=== PATIENT | male | born 1935 | race African-American/Black ===

== ENCOUNTER 2018-11-01 14:28 | Inpatient (IN) | payer MEDICARE ==
[~2018-11-01] VITALS: Ht 180.3 cm; Wt 56.6 kg
[2018-11-01 14:30] VITALS: BP 114/57
[2018-11-01] MEDS ORDERED: ACETAMINOPHEN650 M4 ORAL (14:48)
[2018-11-01] MEDS ORDERED: MAG-AL PLUS XS30 M1 PO (14:57)
[2018-11-01] MEDS ORDERED: ALBUTEROL2.5 MG/3 M INH (14:57)
[2018-11-01] MEDS ORDERED: LOVENOX40 MG/0.4 SUBQ (14:57)
[2018-11-01] MEDS ORDERED: ZESTRIL30 MG ORAL (14:57)
[2018-11-01] MEDS ORDERED: PEPCID AC20 M2 PO (14:57)
[2018-11-01] MEDS ORDERED: COLACE100 MG ORAL (14:57)
[2018-11-01] MEDS ORDERED: FERROUS SU300 MG/5 M ORAL (14:57)
[2018-11-01] MEDS ORDERED: ASCORBIC ACID500 MG ORAL (14:57)
[2018-11-01] MEDS ORDERED: CLONIDINE HCL0.1 MG PO (14:57)
[2018-11-01] MEDS ORDERED: ROBITUSSIN LON118 ML PO (14:57)
[2018-11-01] MEDS ORDERED: ZOFRAN4 MG/5 ML ORAL (14:57)
[2018-11-01] MEDS ORDERED: METOPROLOL SUCC25 MG ORAL (14:57)
[2018-11-01] MEDS ORDERED: BENADRYL25 M3 PO (14:57)
[2018-11-01] MEDS ORDERED: ATIVAN0.5 MG ORAL (14:57)
--- NOTE | 2018-11-01 15:02 | Emergency Room Report ---
History of Present Illness General Chief Complaint: Generalized Weakness Source: Patient, Medical Record, EMS Present Illness HPI Patient is an 83-year-old male sent in by nursing facility for increased generalized weakness. Patient reportedly had decreased oral intake. Patient had prior history of COPD. He had been noted to be losing weight. Patient states that he had not been vomiting. He was noted to have continued cough. Allergies: Coded Allergies: No Known Allergies (Unverified , 11/01/18) Patient History Past Medical History: see triage record Reviewed Nursing Documentation: PMH: Agreed; PSxH: Agreed Nursing Documentation-PMH Past Medical History: No History, Except For Hx Cardiac Problems: Yes - HF; anemia Hx Hypertension: Yes Hx COPD: Yes Review of Systems All Other Systems: negative except mentioned in HPI Physical Exam Vital Signs Date Time Temp Pulse Resp B/P (MAP) Pulse Ox O2 Delivery O2 Flow Rate FiO2 11/01/18 14:23 98.1 82 16 116/67 98 Nasal Cannula 3.0 Sp02 EP Interpretation: reviewed, normal General Appearance: normal inspection, no apparent distress, alert, GCS 15, cachetic, Chronically Ill Head: atraumatic ENT: normal ENT inspection Neck: normal inspection, supple, no bony tend, limited range of motion Respiratory: normal inspection, no respiratory distress, no retraction, wheezing Cardiovascular #1: regular rate, rhythm, no edema Gastrointestinal: normal inspection, normal bowel sounds, non tender, soft, no guarding, no hernia Genitourinary: no CVA tenderness Musculoskeletal: normal inspection, back normal, normal range of motion Neurologic: alert, responsive, electro winning operator III-XII nml as tested, speech normal, motor weakness Psychiatric: normal inspection, judgement/insight normal, mood/affect normal Skin: no rash Medical Decision Making Diagnostic Impression: Primary Impression: Failure to thrive Additional Impressions: COPD (chronic obstructive pulmonary disease) Abdominal aortic aneurysm (AAA) without rupture Urinary tract infection ER Course patient presented for generalized weakness. Differential diagnosis included was not limited to anemia, urinary tract infection, electrolyte abnormality, hypothyroidism, myocardial infarction, myasthenia gravis, dehydration, among others. Because of complexity of patient's case laboratory testing and imaging studies were ordered. EKG interpreted by me showed sinus bradycardia with motion artifact without acute ST or T wave changes.Patient was noted to have some accessory muscle use and some wheezing. Patient was noted to have some decreased appetite. Patient noted to be somewhat anemic. Patient started on IV antibiotics for urinary infection.Dr. Aakash Urias was contacted for inpatient management. Labs Test 11/01/18 14:56 11/01/18 15:20 White Blood Count 9.4 K/UL (4.8-10.8) Red Blood Count 3.20 M/UL (4.70-6.10) Hemoglobin 8.9 G/DL (14.2-18.0) Hematocrit 27.8 % (42.0-52.0) Mean Corpuscular Volume 87 FL (80-99) Mean Corpuscular Hemoglobin 27.8 PG (27.0-31.0) Mean Corpuscular Hemoglobin Concent 32.0 G/DL (32.0-36.0) Red Cell Distribution Width 14.6 % (11.6-14.8) Platelet Count 376 K/UL (150-450) Mean Platelet Volume 5.0 FL (6.5-10.1) Neutrophils (%) (Auto) 66.5 % (45.0-75.0) Lymphocytes (%) (Auto) 20.7 % (20.0-45.0) Monocytes (%) (Auto) 10.8 % (1.0-10.0) Eosinophils (%) (Auto) 0.7 % (0.0-3.0) Basophils (%) (Auto) 1.3 % (0.0-2.0) Prothrombin Time 11.3 SEC (9.30-11.50) Prothromb Time International Ratio 1.1 (0.9-1.1) Activated Partial Thromboplast Time 34 SEC (23-33) Sodium Level 130 MMOL/L (136-145) Potassium Level 4.0 MMOL/L (3.5-5.1) Chloride Level 96 MMOL/L (98-107) Carbon Dioxide Level 29 MMOL/L (21-32) Anion Gap 5 mmol/L (5-15) Blood Urea Nitrogen 17 mg/dL (7-18) Creatinine 0.8 MG/DL (0.55-1.30) Estimat Glomerular Filtration Rate mL/min (>60) Glucose Level 129 MG/DL (74-106) Calcium Level 9.4 MG/DL (8.5-10.1) Total Bilirubin 0.3 MG/DL (0.2-1.0) Aspartate Amino Transf (AST/SGOT) 14 U/L (15-37) Alanine Aminotransferase (ALT/SGPT) 10 U/L (12-78) Alkaline Phosphatase 103 U/L (46-116) Troponin I 0.005 ng/mL (0.000-0.056) Total Protein 6.7 G/DL (6.4-8.2) Albumin 2.2 G/DL (3.4-5.0) Globulin 4.5 g/dL Albumin/Globulin Ratio 0.5 (1.0-2.7) Lipase 182 U/L (73-393) Urine Color Yellow Urine Appearance Slightly cloudy Urine pH 5 (4.5-8.0) Urine Specific [place] 1.015 (1.005-1.035) Urine Protein 2+ (NEGATIVE) Urine Glucose (UA) Negative (NEGATIVE) Urine Ketones Negative (NEGATIVE) Urine Blood 2+ (NEGATIVE) Urine Nitrite Negative (NEGATIVE) Urine Bilirubin Negative (NEGATIVE) Urine Urobilinogen 1 MG/DL (0.0-1.0) Urine Leukocyte Esterase 3+ (NEGATIVE) Urine RBC 0-2 /HPF (0 - 0) Urine WBC 20-30 /HPF (0 - 0) Urine Squamous Epithelial Cells None /LPF (NONE/OCC) Urine Bacteria Moderate /HPF (NONE) Last Vital Signs Date Time Temp Pulse Resp B/P (MAP) Pulse Ox O2 Delivery O2 Flow Rate FiO2 11/01/18 14:23 98.1 82 16 116/67 98 Nasal Cannula 3.0 Status: unchanged Disposition: ADMITTED INPATIENT Condition: Stable Bassem Rizvi MD Nov 01, 2018 15:02
[2018-11-01 15:25] LABS: BASOPHILS % (AUTO) 1.3 % (0.0-2.0); EOSINOPHILS % (AUTO) 0.7 % (0.0-3.0); HEMATOCRIT 27.8 % (42.0-52.0); HEMOGLOBIN 8.9 G/DL (14.2-18.0); LYMPHOCYTES % (AUTO) 20.7 % (20.0-45.0); MEAN CORPUSCULAR VOLUME 87 FL (80-99); MONOCYTES % (AUTO) 10.8 % (1.0-10.0); NEUTROPHILS % (AUTO) 66.5 % (45.0-75.0); PLATELET COUNT 376 K/UL (150-450); RED CELL DISTRIBUTION WIDTH 14.6 % (11.6-14.8); WHITE BLOOD COUNT 9.4 K/UL (4.8-10.8)
[2018-11-01 15:33] LABS: INR 1.1 (0.9-1.1)
[2018-11-01 15:36] LABS: ANION GAP 5 mmol/L (5-15); BLOOD UREA NITROGEN 17 mg/dL (7-18); CALCIUM 9.4 MG/DL (8.5-10.1); CARBON DIOXIDE 29 MMOL/L (21-32); CHLORIDE 96 MMOL/L (98-107); CREATININE 0.8 MG/DL (0.55-1.30); SODIUM 130 MMOL/L (136-145)
[2018-11-01 15:39] LABS: APPEARANCE,URINE SLIGHTLY CLOUDY; BILIRUBIN, URINE NEGATIVE (NEGATIVE); GLUCOSE, URINE (UA) NEGATIVE (NEGATIVE); KETONES,URINE NEGATIVE (NEGATIVE); LEUKOCYTE ESTERASE ,URINE 3+ (NEGATIVE); NITRITE,URINE NEGATIVE (NEGATIVE); PH,URINE 5 (4.5-8.0); PROTEIN,URINE 2+ (NEGATIVE); UROBILINOGEN,URINE 1 MG/DL (0.0-1.0)
[2018-11-01 15:40] LABS: ALANINE AMINOTRANSFERASE 10 U/L (12-78); ALBUMIN 2.2 G/DL (3.4-5.0); ALBUMIN/GLOBULIN RATIO 0.5 (1.0-2.7); ALKALINE PHOSPHATASE 103 U/L (46-116); ASPARTATE AMINO TRANSFERASE 14 U/L (15-37); BILIRUBIN,TOTAL 0.3 MG/DL (0.2-1.0)
[2018-11-01 15:40] LABS: COLOR,URINE YELLOW
[2018-11-01] MEDS ORDERED: cefTRIAXone 1 GM in NS 55 ML IVPB ONE (16:00)
[2018-11-01 16:30] VITALS: BP 135/81
[2018-11-01] MEDS ORDERED: ACETAMINOPHEN325 M1 ORAL (17:20)
[2018-11-01] MEDS ORDERED: ACIDOPHILUS PR1 EACH PO (17:22)
[2018-11-01] MEDS ORDERED: CATAPRES0.1 MG ORAL (17:24)
[2018-11-01] MEDS ORDERED: DIPHENHYDRAMINE25 M1 ORAL (17:25)
[2018-11-01] MEDS ORDERED: LOVENOX10 M4 SUBQ (17:27)
[2018-11-01] MEDS ORDERED: FERROUS SULFAT325 MG ORAL (17:29)
[2018-11-01] MEDS ORDERED: ADULT WAL-100 MG/5 M ORAL (17:30)
[2018-11-01] MEDS ORDERED: DUONEB 0.5-3(2.53 ML HHN (17:33)
[2018-11-01] MEDS ORDERED: LISINOPRIL20 MG ORAL (17:40)
[2018-11-01] MEDS ORDERED: MYLANTA II30 ML PO (17:45)
[2018-11-01] MEDS ORDERED: MEGESTROL400 MG/11 PO (17:46)
[2018-11-01] MEDS ORDERED: METOPROLOL TART25 MG ORAL (17:47)
[2018-11-01] MEDS ORDERED: MULTIVITAMINS1 EAC8 ORAL (17:50)
[2018-11-01] MEDS ORDERED: NITROSTAT0.4 M1 SL (17:51)
[2018-11-01] MEDS ORDERED: ZOFRAN4 M3 ORAL (17:53)
[2018-11-01] MEDS ORDERED: SYNTHROID100 MCG ORAL ×2 (17:59→18:00)
[2018-11-01] MEDS ORDERED: SYNTHROID75 MCG ORAL (18:02)
[2018-11-01 18:03] VITALS: BP 112/54
[2018-11-01] MEDS ORDERED: Zolpidem 5mg tab ORAL PRN (19:15)
[2018-11-01] MEDS ORDERED: LORazepam Inj 2mg/ml 1ml IV PRN (19:15)
[2018-11-01] MEDS ORDERED: Miralax 17gm pkt ORAL PRN (19:15)
[2018-11-01] MEDS ORDERED: Morphine Sulfate 4mg/ml Inj (IV/IM USE ONLY) IVP PRN (19:15)
[2018-11-01] MEDS ORDERED: Mylanta II UD 30ml ORAL PRN (19:15)
[2018-11-01 21:10] VITALS: BP 150/82
[2018-11-02] VITALS: BP 105/43
[2018-11-02 04:00] VITALS: BP 111/54
[2018-11-02 07:25] LABS: BASOPHILS % (AUTO) 1.3 % (0.0-2.0); EOSINOPHILS % (AUTO) 1.3 % (0.0-3.0); HEMATOCRIT 25.8 % (42.0-52.0); HEMOGLOBIN 8.4 G/DL (14.2-18.0); LYMPHOCYTES % (AUTO) 23.5 % (20.0-45.0); MEAN CORPUSCULAR VOLUME 85 FL (80-99); MONOCYTES % (AUTO) 10.9 % (1.0-10.0); PLATELET COUNT 339 K/UL (150-450); RED BLOOD COUNT 3.05 M/UL (4.70-6.10); RED CELL DISTRIBUTION WIDTH 14.7 % (11.6-14.8); WHITE BLOOD COUNT 8.3 K/UL (4.8-10.8)
[2018-11-02 07:41] LABS: ALANINE AMINOTRANSFERASE 10 U/L (12-78); ALBUMIN 2.1 G/DL (3.4-5.0); ALBUMIN/GLOBULIN RATIO 0.5 (1.0-2.7); ALKALINE PHOSPHATASE 100 U/L (46-116); ANION GAP 5 mmol/L (5-15); ASPARTATE AMINO TRANSFERASE 13 U/L (15-37); BILIRUBIN,TOTAL 0.3 MG/DL (0.2-1.0); BLOOD UREA NITROGEN 16 mg/dL (7-18); CALCIUM 9.3 MG/DL (8.5-10.1); CARBON DIOXIDE 27 MMOL/L (21-32); CHLORIDE 98 MMOL/L (98-107); CHOLESTEROL 100 MG/DL (< 200); CREATININE 0.7 MG/DL (0.55-1.30); HDL CHOLESTEROL 36 MG/DL (40-60); POTASSIUM 4.3 MMOL/L (3.5-5.1); SODIUM 130 MMOL/L (136-145); TRIGLYCERIDES 51 MG/DL (30-150)
[2018-11-02 08:00] VITALS: BP 116/59
--- NOTE | 2018-11-02 11:30 | Consultation ---
History of Present Illness General Chief Complaint: Generalized Weakness Present Illness HPI 83-year-old male sent in by nursing facility for increased generalized weakness and decreased oral intake. The pt has cognitive impairment. the pt was able to answer questions the pt is withdrawn and low energy Allergies: Coded Allergies: No Known Allergies (Unverified , 11/01/18) Medication History Scheduled Acidophilus/Pectin, [place] (Acidophilus Probiotic Capsule), 1 EACH PO DAILY, ( Reported) Ascorbic Acid* (Ascorbic Acid*), 500 MG ORAL TWICE A DAY, (Reported) Docusate Sodium* (Colace*), 100 MG ORAL TWICE A DAY, (Reported) Famotidine (Pepcid Ac), 20 MG PO EVERY 12 HOURS, (Reported) Ferrous Sulfate* (Ferrous Sulfate*), 325 MG ORAL TWICE A DAY, (Reported) Levothyroxine Sodium* (Synthroid*), 100 MCG ORAL DAILY, (Reported) Levothyroxine Sodium* (Synthroid*), 50 MCG ORAL DAILY, (Reported) Levothyroxine Sodium* (Synthroid*), 75 MCG ORAL DAILY, (Reported) Lisinopril (Lisinopril*), 20 MG ORAL BID, (Reported) Megestrol Acetate (Megestrol Acetate), 400 MG PO DAILY, (Reported) Metoprolol Tartrate* (Metoprolol Tartrate*), 25 MG ORAL EVERY 12 HOURS, ( Reported) Multivitamin With Minerals (Multivitamins With Minerals*), 1 TAB ORAL DAILY, ( Reported) Scheduled PRN Acetaminophen* (Acetaminophen 325MG Tablet*), 650 MG ORAL Q4H PRN for Mild Pain (Pain Scale 1-3), (Reported) Al Hydroxide/mg Hydroxide (Mag-Al Plus Suspension), 30 ML PO for INDIGESTION, ( Reported) Clonidine Hcl* (Catapres*), 0.1 MG ORAL EVERY 6 HOURS PRN for SBP>160 or DBP>90, (Reported) Diphenhydramine Hcl* (Diphenhydramine Hcl*), 25 MG ORAL Q4HR PRN for Itching, ( Reported) Guaifenesin* (Adult Wal-Tussin*), 10 ML ORAL Q4H PRN for For Cough, (Reported) Ipratropium/Albuterol Sulfate (DuoNeb 0.5-3(2.5)mg/3ml), 3 ML HHN Q4HR PRN for Shortness of Breath, (Reported) Nitroglycerin (Nitrostat), 0.4 MG SL Q5M X3 DOSES PRN for CHEST PAIN, (Reported) Ondansetron* (Zofran*), 4 MG ORAL Q4HR PRN for Nausea & Vomiting, (Reported) Patient History History Provided By: Patient, Medical Record, PMD Healthcare decision maker Anastasiya Abreu Resuscitation status Do Not Resuscitate Advanced Directive on File No Past Medical/Surgical History Past Medical/Surgical History: (1) Abdominal aortic aneurysm (AAA) without rupture (2) COPD (chronic obstructive pulmonary disease) (3) Failure to thrive (4) Generalized weakness Review of Systems Psychiatric: Reports: prior hx, depressed feelings, emotional problems Physical Exam General Appearance: no apparent distress, alert, cachetic Neurologic: alert, depressed affect Last 24 Hour Vital Signs Date Time Temp Pulse Resp B/P (MAP) Pulse Ox O2 Delivery O2 Flow Rate FiO2 11/02/18 09:00 Nasal Cannula 2.0 11/02/18 08:00 53 11/02/18 08:00 96.9 58 19 116/59 (78) 100 11/02/18 04:00 48 11/02/18 04:00 97.0 48 20 111/54 (73) 100 11/02/18 00:00 97.0 53 20 105/43 (63) 100 11/02/18 00:00 53 11/01/18 23:31 Nasal Cannula 2.0 11/01/18 22:00 62 11/01/18 21:10 97.0 62 20 150/82 (104) 94 11/01/18 20:00 97.2 69 23 113/46 92 Nasal Cannula 2.0 11/01/18 18:03 97.1 55 14 112/54 92 Room Air 2.0 11/01/18 16:30 97.7 81 20 135/81 95 Nasal Cannula 2.0 11/01/18 14:30 82 16 Nasal Cannula 3.0 11/01/18 14:30 98.1 72 16 114/57 98 Nasal Cannula 3.0 11/01/18 14:23 98.1 82 16 116/67 98 Nasal Cannula 3.0 Intake and Output 11/01/18 11/02/18 19:00 07:00 Intake Total 55 ml 60 ml Output Total 140 ml 400 ml Balance -85 ml -340 ml Intake Oral 0 ml 60 ml IV Total 55 ml Output Urine Total 140 ml 400 ml Laboratory Tests Test 11/01/18 14:56 11/01/18 15:20 11/02/18 05:26 White Blood Count 9.4 K/UL (4.8-10.8) 8.3 K/UL (4.8-10.8) Red Blood Count 3.20 M/UL (4.70-6.10) L 3.05 M/UL (4.70-6.10) L Hemoglobin 8.9 G/DL (14.2-18.0) L 8.4 G/DL (14.2-18.0) L Hematocrit 27.8 % (42.0-52.0) L 25.8 % (42.0-52.0) L Mean Corpuscular Volume 87 FL (80-99) 85 FL (80-99) Mean Corpuscular Hemoglobin 27.8 PG (27.0-31.0) 27.6 PG (27.0-31.0) Mean Corpuscular Hemoglobin Concent 32.0 G/DL (32.0-36.0) 32.6 G/DL (32.0-36.0) Red Cell Distribution Width 14.6 % (11.6-14.8) 14.7 % (11.6-14.8) Platelet Count 376 K/UL (150-450) 339 K/UL (150-450) Mean Platelet Volume 5.0 FL (6.5-10.1) L 5.4 FL (6.5-10.1) L Neutrophils (%) (Auto) 66.5 % (45.0-75.0) 63.0 % (45.0-75.0) Lymphocytes (%) (Auto) 20.7 % (20.0-45.0) 23.5 % (20.0-45.0) Monocytes (%) (Auto) 10.8 % (1.0-10.0) H 10.9 % (1.0-10.0) H Eosinophils (%) (Auto) 0.7 % (0.0-3.0) 1.3 % (0.0-3.0) Basophils (%) (Auto) 1.3 % (0.0-2.0) 1.3 % (0.0-2.0) Prothrombin Time 11.3 SEC (9.30-11.50) Prothromb Time International Ratio 1.1 (0.9-1.1) Activated Partial Thromboplast Time 34 SEC (23-33) H Sodium Level 130 MMOL/L (136-145) L 130 MMOL/L (136-145) L Potassium Level 4.0 MMOL/L (3.5-5.1) 4.3 MMOL/L (3.5-5.1) Chloride Level 96 MMOL/L (98-107) L 98 MMOL/L (98-107) Carbon Dioxide Level 29 MMOL/L (21-32) 27 MMOL/L (21-32) Anion Gap 5 mmol/L (5-15) 5 mmol/L (5-15) Blood Urea Nitrogen 17 mg/dL (7-18) 16 mg/dL (7-18) Creatinine 0.8 MG/DL (0.55-1.30) 0.7 MG/DL (0.55-1.30) Estimat Glomerular Filtration Rate mL/min (>60) mL/min (>60) Glucose Level 129 MG/DL (74-106) H 101 MG/DL (74-106) Calcium Level 9.4 MG/DL (8.5-10.1) 9.3 MG/DL (8.5-10.1) Total Bilirubin 0.3 MG/DL (0.2-1.0) 0.3 MG/DL (0.2-1.0) Aspartate Amino Transf (AST/SGOT) 14 U/L (15-37) L 13 U/L (15-37) L Alanine Aminotransferase (ALT/SGPT) 10 U/L (12-78) L 10 U/L (12-78) L Alkaline Phosphatase 103 U/L (46-116) 100 U/L (46-116) Troponin I 0.005 ng/mL (0.000-0.056) Total Protein 6.7 G/DL (6.4-8.2) 6.2 G/DL (6.4-8.2) L Albumin 2.2 G/DL (3.4-5.0) L 2.1 G/DL (3.4-5.0) L Globulin 4.5 g/dL 4.1 g/dL Albumin/Globulin Ratio 0.5 (1.0-2.7) L 0.5 (1.0-2.7) L Lipase 182 U/L (73-393) Urine Color Yellow Urine Appearance Slightly cloudy Urine pH 5 (4.5-8.0) Urine Specific [place] 1.015 (1.005-1.035) Urine Protein 2+ (NEGATIVE) H Urine Glucose (UA) Negative (NEGATIVE) Urine Ketones Negative (NEGATIVE) Urine Blood 2+ (NEGATIVE) H Urine Nitrite Negative (NEGATIVE) Urine Bilirubin Negative (NEGATIVE) Urine Urobilinogen 1 MG/DL (0.0-1.0) H Urine Leukocyte Esterase 3+ (NEGATIVE) H Urine RBC 0-2 /HPF (0 - 0) H Urine WBC 20-30 /HPF (0 - 0) H Urine Squamous Epithelial Cells None /LPF (NONE/OCC) Urine Bacteria Moderate /HPF (NONE) H Triglycerides Level 51 MG/DL (30-150) Cholesterol Level 100 MG/DL (< 200) LDL Cholesterol 57 mg/dL (<100) HDL Cholesterol 36 MG/DL (40-60) L Cholesterol/HDL Ratio 2.8 (3.3-4.4) L Thyroid Stimulating Hormone (TSH) 1.253 uiU/mL (0.358-3.740) Microbiology Date/Time Source Procedure Growth Status 11/01/18 15:20 Urine,Clean Catch Urine Culture - Preliminary NO GROWTH Resulted Height (Feet): 5 Height (Inches): 11.00 Weight (Pounds): 109 Medications Current Medications Medications (Trade) Dose Ordered Sig/Casimiro Route PRN Reason Start Time Stop Time Status Last Admin Dose Admin Acetaminophen (Tylenol) 650 mg Q4H PRN ORAL fever 11/01/18 19:15 12/01/18 19:14 Al Hydroxide/Mg Hydroxide (Mylanta II) 30 ml Q6H PRN ORAL dyspepsia 11/01/18 19:15 12/01/18 19:14 Dextrose (Dextrose 50%) 25 ml Q30M PRN IV Hypoglycemia 11/01/18 19:15 12/01/18 19:14 Dextrose (Dextrose 50%) 50 ml Q30M PRN IV Hypoglycemia 11/01/18 19:30 12/01/18 19:29 Lorazepam (Ativan 2mg/ml 1ml) 0.5 mg Q4H PRN IV For Anxiety 11/01/18 19:15 11/08/18 19:14 Morphine Sulfate (Morphine Sulfate) 1 mg Q4H PRN IVP For Pain 11/01/18 19:15 11/08/18 19:14 Ondansetron HCl (Zofran) 4 mg Q6H PRN IVP Nausea & Vomiting 11/01/18 19:15 12/01/18 19:14 Polyethylene Glycol (Miralax) 17 gm HSPRN PRN ORAL Constipation 11/01/18 19:15 12/01/18 19:14 Zolpidem Tartrate (Ambien) 5 mg HSPRN PRN ORAL Insomnia 11/01/18 19:15 11/08/18 19:14 Assessment/Plan Assessment/Plan failure to thrive cognitive impairment mdd Remeron 15mg po qhs provided dar/Cali Wilhelm MD Nov 02, 2018 11:30
--- NOTE | 2018-11-02 11:59 | History & Physical ---
History and Physical History & Physicial Dictated for Int Med-Dr Urias no. [id number]. Clemente Miguel MD Nov 02, 2018 11:59
[2018-11-02 12:00] VITALS: BP 106/54
--- NOTE | 2018-11-02 13:20 | Consultation ---
History of Present Illness General Date patient seen: Nov 01, 2018 Chief Complaint: Generalized Weakness Present Illness HPI 83-year-old male with hx of COPD, hypothyroidsm, [facility] resident presented to ER with CC of increased generalized weakness. Patient reportedly had decreased oral intake. He had been noted to be losing weight. He was found to have severe anemia and hyponatremia and admitted to [facility] [place] [facility] for further work up. Allergies: Coded Allergies: No Known Allergies (Unverified , 11/01/18) Medication History Scheduled Acidophilus/Pectin, [place] (Acidophilus Probiotic Capsule), 1 EACH PO DAILY, ( Reported) Ascorbic Acid* (Ascorbic Acid*), 500 MG ORAL TWICE A DAY, (Reported) Docusate Sodium* (Colace*), 100 MG ORAL TWICE A DAY, (Reported) Famotidine (Pepcid Ac), 20 MG PO EVERY 12 HOURS, (Reported) Ferrous Sulfate* (Ferrous Sulfate*), 325 MG ORAL TWICE A DAY, (Reported) Levothyroxine Sodium* (Synthroid*), 100 MCG ORAL DAILY, (Reported) Levothyroxine Sodium* (Synthroid*), 50 MCG ORAL DAILY, (Reported) Levothyroxine Sodium* (Synthroid*), 75 MCG ORAL DAILY, (Reported) Lisinopril (Lisinopril*), 20 MG ORAL BID, (Reported) Megestrol Acetate (Megestrol Acetate), 400 MG PO DAILY, (Reported) Metoprolol Tartrate* (Metoprolol Tartrate*), 25 MG ORAL EVERY 12 HOURS, ( Reported) Multivitamin With Minerals (Multivitamins With Minerals*), 1 TAB ORAL DAILY, ( Reported) Scheduled PRN Acetaminophen* (Acetaminophen 325MG Tablet*), 650 MG ORAL Q4H PRN for Mild Pain (Pain Scale 1-3), (Reported) Al Hydroxide/mg Hydroxide (Mag-Al Plus Suspension), 30 ML PO for INDIGESTION, ( Reported) Clonidine Hcl* (Catapres*), 0.1 MG ORAL EVERY 6 HOURS PRN for SBP>160 or DBP>90, (Reported) Diphenhydramine Hcl* (Diphenhydramine Hcl*), 25 MG ORAL Q4HR PRN for Itching, ( Reported) Guaifenesin* (Adult Wal-Tussin*), 10 ML ORAL Q4H PRN for For Cough, (Reported) Ipratropium/Albuterol Sulfate (DuoNeb 0.5-3(2.5)mg/3ml), 3 ML HHN Q4HR PRN for Shortness of Breath, (Reported) Nitroglycerin (Nitrostat), 0.4 MG SL Q5M X3 DOSES PRN for CHEST PAIN, (Reported) Ondansetron* (Zofran*), 4 MG ORAL Q4HR PRN for Nausea & Vomiting, (Reported) Patient History Healthcare decision maker Anastasiya Abreu Resuscitation status Do Not Resuscitate Advanced Directive on File No Past Medical/Surgical History Past Medical/Surgical History: (1) HTN (hypertension) (2) Hypothyroidism (3) COPD (chronic obstructive pulmonary disease) Review of Systems All Other Systems: negative except mentioned in HPI Physical Exam General Appearance: cachetic Lines, tubes and drains: peripheral HEENT: normocephalic Neck: non-tender, normal alignment Respiratory/Chest: chest wall non-tender, normal breath sounds Breasts: no masses Cardiovascular/Chest: normal peripheral pulses, normal rate Abdomen: normal bowel sounds Genitourinary/Rectal: normal genital exam Extremities: normal range of motion Last 24 Hour Vital Signs Date Time Temp Pulse Resp B/P (MAP) Pulse Ox O2 Delivery O2 Flow Rate FiO2 11/02/18 09:00 Nasal Cannula 2.0 11/02/18 08:00 53 11/02/18 08:00 96.9 58 19 116/59 (78) 100 11/02/18 04:00 48 11/02/18 04:00 97.0 48 20 111/54 (73) 100 11/02/18 00:00 97.0 53 20 105/43 (63) 100 11/02/18 00:00 53 11/01/18 23:31 Nasal Cannula 2.0 11/01/18 22:00 62 11/01/18 21:10 97.0 62 20 150/82 (104) 94 11/01/18 20:00 97.2 69 23 113/46 92 Nasal Cannula 2.0 11/01/18 18:03 97.1 55 14 112/54 92 Room Air 2.0 11/01/18 16:30 97.7 81 20 135/81 95 Nasal Cannula 2.0 11/01/18 14:30 82 16 Nasal Cannula 3.0 11/01/18 14:30 98.1 72 16 114/57 98 Nasal Cannula 3.0 11/01/18 14:23 98.1 82 16 116/67 98 Nasal Cannula 3.0 Intake and Output 11/01/18 11/02/18 19:00 07:00 Intake Total 55 ml 60 ml Output Total 140 ml 400 ml Balance -85 ml -340 ml Intake Oral 0 ml 60 ml IV Total 55 ml Output Urine Total 140 ml 400 ml Laboratory Tests Test 11/01/18 14:56 11/01/18 15:20 11/02/18 05:26 White Blood Count 9.4 K/UL (4.8-10.8) 8.3 K/UL (4.8-10.8) Red Blood Count 3.20 M/UL (4.70-6.10) L 3.05 M/UL (4.70-6.10) L Hemoglobin 8.9 G/DL (14.2-18.0) L 8.4 G/DL (14.2-18.0) L Hematocrit 27.8 % (42.0-52.0) L 25.8 % (42.0-52.0) L Mean Corpuscular Volume 87 FL (80-99) 85 FL (80-99) Mean Corpuscular Hemoglobin 27.8 PG (27.0-31.0) 27.6 PG (27.0-31.0) Mean Corpuscular Hemoglobin Concent 32.0 G/DL (32.0-36.0) 32.6 G/DL (32.0-36.0) Red Cell Distribution Width 14.6 % (11.6-14.8) 14.7 % (11.6-14.8) Platelet Count 376 K/UL (150-450) 339 K/UL (150-450) Mean Platelet Volume 5.0 FL (6.5-10.1) L 5.4 FL (6.5-10.1) L Neutrophils (%) (Auto) 66.5 % (45.0-75.0) 63.0 % (45.0-75.0) Lymphocytes (%) (Auto) 20.7 % (20.0-45.0) 23.5 % (20.0-45.0) Monocytes (%) (Auto) 10.8 % (1.0-10.0) H 10.9 % (1.0-10.0) H Eosinophils (%) (Auto) 0.7 % (0.0-3.0) 1.3 % (0.0-3.0) Basophils (%) (Auto) 1.3 % (0.0-2.0) 1.3 % (0.0-2.0) Prothrombin Time 11.3 SEC (9.30-11.50) Prothromb Time International Ratio 1.1 (0.9-1.1) Activated Partial Thromboplast Time 34 SEC (23-33) H Sodium Level 130 MMOL/L (136-145) L 130 MMOL/L (136-145) L Potassium Level 4.0 MMOL/L (3.5-5.1) 4.3 MMOL/L (3.5-5.1) Chloride Level 96 MMOL/L (98-107) L 98 MMOL/L (98-107) Carbon Dioxide Level 29 MMOL/L (21-32) 27 MMOL/L (21-32) Anion Gap 5 mmol/L (5-15) 5 mmol/L (5-15) Blood Urea Nitrogen 17 mg/dL (7-18) 16 mg/dL (7-18) Creatinine 0.8 MG/DL (0.55-1.30) 0.7 MG/DL (0.55-1.30) Estimat Glomerular Filtration Rate mL/min (>60) mL/min (>60) Glucose Level 129 MG/DL (74-106) H 101 MG/DL (74-106) Calcium Level 9.4 MG/DL (8.5-10.1) 9.3 MG/DL (8.5-10.1) Total Bilirubin 0.3 MG/DL (0.2-1.0) 0.3 MG/DL (0.2-1.0) Aspartate Amino Transf (AST/SGOT) 14 U/L (15-37) L 13 U/L (15-37) L Alanine Aminotransferase (ALT/SGPT) 10 U/L (12-78) L 10 U/L (12-78) L Alkaline Phosphatase 103 U/L (46-116) 100 U/L (46-116) Troponin I 0.005 ng/mL (0.000-0.056) Total Protein 6.7 G/DL (6.4-8.2) 6.2 G/DL (6.4-8.2) L Albumin 2.2 G/DL (3.4-5.0) L 2.1 G/DL (3.4-5.0) L Globulin 4.5 g/dL 4.1 g/dL Albumin/Globulin Ratio 0.5 (1.0-2.7) L 0.5 (1.0-2.7) L Lipase 182 U/L (73-393) Urine Color Yellow Urine Appearance Slightly cloudy Urine pH 5 (4.5-8.0) Urine Specific [place] 1.015 (1.005-1.035) Urine Protein 2+ (NEGATIVE) H Urine Glucose (UA) Negative (NEGATIVE) Urine Ketones Negative (NEGATIVE) Urine Blood 2+ (NEGATIVE) H Urine Nitrite Negative (NEGATIVE) Urine Bilirubin Negative (NEGATIVE) Urine Urobilinogen 1 MG/DL (0.0-1.0) H Urine Leukocyte Esterase 3+ (NEGATIVE) H Urine RBC 0-2 /HPF (0 - 0) H Urine WBC 20-30 /HPF (0 - 0) H Urine Squamous Epithelial Cells None /LPF (NONE/OCC) Urine Bacteria Moderate /HPF (NONE) H Triglycerides Level 51 MG/DL (30-150) Cholesterol Level 100 MG/DL (< 200) LDL Cholesterol 57 mg/dL (<100) HDL Cholesterol 36 MG/DL (40-60) L Cholesterol/HDL Ratio 2.8 (3.3-4.4) L Thyroid Stimulating Hormone (TSH) 1.253 uiU/mL (0.358-3.740) Microbiology Date/Time Source Procedure Growth Status 11/01/18 15:20 Urine,Clean Catch Urine Culture - Preliminary NO GROWTH Resulted Height (Feet): 5 Height (Inches): 11.00 Weight (Pounds): 109 Medications Current Medications Medications (Trade) Dose Ordered Sig/Casimiro Route PRN Reason Start Time Stop Time Status Last Admin Dose Admin Acetaminophen (Tylenol) 650 mg Q4H PRN ORAL fever 11/01/18 19:15 12/01/18 19:14 Al Hydroxide/Mg Hydroxide (Mylanta II) 30 ml Q6H PRN ORAL dyspepsia 11/01/18 19:15 12/01/18 19:14 Ceftriaxone Sodium (Rocephin) 1 gm DAILY IM 11/03/18 09:00 11/10/18 08:59 UNV Dextrose (Dextrose 50%) 25 ml Q30M PRN IV Hypoglycemia 11/01/18 19:15 12/01/18 19:14 Dextrose (Dextrose 50%) 50 ml Q30M PRN IV Hypoglycemia 11/01/18 19:30 12/01/18 19:29 Lorazepam (Ativan 2mg/ml 1ml) 0.5 mg Q4H PRN IV For Anxiety 11/01/18 19:15 11/08/18 19:14 Mirtazapine (Remeron) 15 mg QHS ORAL 11/02/18 21:00 12/02/18 20:59 Morphine Sulfate (Morphine Sulfate) 1 mg Q4H PRN IVP For Pain 11/01/18 19:15 11/08/18 19:14 Ondansetron HCl (Zofran) 4 mg Q6H PRN IVP Nausea & Vomiting 11/01/18 19:15 12/01/18 19:14 Polyethylene Glycol (Miralax) 17 gm HSPRN PRN ORAL Constipation 11/01/18 19:15 12/01/18 19:14 Sodium Chloride 1,000 ml @ 50 mls/hr Q20H IV 11/02/18 12:15 12/02/18 12:14 11/02/18 12:38 Zolpidem Tartrate (Ambien) 5 mg HSPRN PRN ORAL Insomnia 11/01/18 19:15 11/08/18 19:14 Assessment/Plan Problem List: (1) Severe anemia ICD Codes: D64.9 - Anemia, unspecified SNOMED: 466555614 (2) Hyponatremia ICD Codes: E87.1 - Hypo-osmolality and hyponatremia SNOMED: 13562995 (3) Severe protein-calorie malnutrition ICD Codes: E43 - Unspecified severe protein-calorie malnutrition SNOMED: 867887314 (4) COPD (chronic obstructive pulmonary disease) ICD Codes: J44.9 - Chronic obstructive pulmonary disease, unspecified SNOMED: 28603199 (5) Failure to thrive SNOMED: 49029595 (6) Hypothyroidism ICD Codes: E03.9 - Hypothyroidism, unspecified SNOMED: 44598417 (7) HTN (hypertension) ICD Codes: I10 - Essential (primary) hypertension SNOMED: 64444896 Assessment/Plan calorie count anemia w/u hyponatremia w/u symptomatic treatment check Tsh monitor BP, avoid HCTZ dvt prophylaxis. Jose Reese MD Nov 02, 2018 13:20
--- NOTE | 2018-11-02 13:22 | Pulmonology Progress Note ---
Assessment/Plan Problems: (1) Severe anemia (2) Hyponatremia (3) Severe protein-calorie malnutrition (4) COPD (chronic obstructive pulmonary disease) (5) Failure to thrive (6) Hypothyroidism (7) HTN (hypertension) Assessment/Plan w/u in progress stool for OB check Na monitor BP nutrition evaluation Subjective ROS Limited/Unobtainable: No Constitutional: Reports: no symptoms HEENT: Repors: no symptoms Respiratory: Reports: no symptoms Allergies: Coded Allergies: No Known Allergies (Unverified , 11/01/18) Objective Last 24 Hour Vital Signs Date Time Temp Pulse Resp B/P (MAP) Pulse Ox O2 Delivery O2 Flow Rate FiO2 11/02/18 09:00 Nasal Cannula 2.0 11/02/18 08:00 53 11/02/18 08:00 96.9 58 19 116/59 (78) 100 11/02/18 04:00 48 11/02/18 04:00 97.0 48 20 111/54 (73) 100 11/02/18 00:00 97.0 53 20 105/43 (63) 100 11/02/18 00:00 53 11/01/18 23:31 Nasal Cannula 2.0 11/01/18 22:00 62 11/01/18 21:10 97.0 62 20 150/82 (104) 94 11/01/18 20:00 97.2 69 23 113/46 92 Nasal Cannula 2.0 11/01/18 18:03 97.1 55 14 112/54 92 Room Air 2.0 11/01/18 16:30 97.7 81 20 135/81 95 Nasal Cannula 2.0 11/01/18 14:30 82 16 Nasal Cannula 3.0 11/01/18 14:30 98.1 72 16 114/57 98 Nasal Cannula 3.0 11/01/18 14:23 98.1 82 16 116/67 98 Nasal Cannula 3.0 Intake and Output 11/01/18 11/02/18 19:00 07:00 Intake Total 55 ml 60 ml Output Total 140 ml 400 ml Balance -85 ml -340 ml Intake Oral 0 ml 60 ml IV Total 55 ml Output Urine Total 140 ml 400 ml General Appearance: cachetic HEENT: normocephalic, atraumatic Respiratory/Chest: chest wall non-tender, lungs clear Cardiovascular: normal peripheral pulses, normal rate Abdomen: normal bowel sounds, soft, non tender Genitourinary: normal external genitalia Extremities: no cyanosis 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 Microbiology Date/Time Source Procedure Growth Status 11/01/18 15:20 Urine,Clean Catch Urine Culture - Preliminary NO GROWTH Resulted Laboratory Tests 11/01/18 14:56: White Blood Count 9.4, Red Blood Count 3.20L, Hemoglobin 8.9L, Hematocrit 27.8L , Mean Corpuscular Volume 87, Mean Corpuscular Hemoglobin 27.8, Mean Corpuscular Hemoglobin Concent 32.0, Red Cell Distribution Width 14.6, Platelet Count 376, Mean Platelet Volume 5.0L, Neutrophils (%) (Auto) 66.5, Lymphocytes ( %) (Auto) 20.7, Monocytes (%) (Auto) 10.8H, Eosinophils (%) (Auto) 0.7, Basophils (%) (Auto) 1.3, Prothrombin Time 11.3, Prothromb Time International Ratio 1.1, Activated Partial Thromboplast Time 34H, Sodium Level 130L, Potassium Level 4.0, Chloride Level 96L, Carbon Dioxide Level 29, Anion Gap 5, Blood Urea Nitrogen 17, Creatinine 0.8, Estimat Glomerular Filtration Rate , Glucose Level 129H, Calcium Level 9.4, Total Bilirubin 0.3, Aspartate Amino Transf (AST/SGOT) 14L, Alanine Aminotransferase (ALT/SGPT) 10L, Alkaline Phosphatase 103, Troponin I 0.005, Total Protein 6.7, Albumin 2.2L, Globulin 4.5 , Albumin/Globulin Ratio 0.5L, Lipase 182 11/01/18 15:20: Urine Color Yellow, Urine Appearance Slightly cloudy, Urine pH 5, Urine Specific [place] 1.015, Urine Protein 2+H, Urine Glucose (UA) Negative, Urine Ketones Negative, Urine Blood 2+H, Urine Nitrite Negative, Urine Bilirubin Negative, Urine Urobilinogen 1H, Urine Leukocyte Esterase 3+H, Urine RBC 0-2H, Urine WBC 20-30H, Urine Squamous Epithelial Cells None, Urine Bacteria ModerateH 11/02/18 05:26: White Blood Count 8.3, Red Blood Count 3.05L, Hemoglobin 8.4L, Hematocrit 25.8L , Mean Corpuscular Volume 85, Mean Corpuscular Hemoglobin 27.6, Mean Corpuscular Hemoglobin Concent 32.6, Red Cell Distribution Width 14.7, Platelet Count 339, Mean Platelet Volume 5.4L, Neutrophils (%) (Auto) 63.0, Lymphocytes ( %) (Auto) 23.5, Monocytes (%) (Auto) 10.9H, Eosinophils (%) (Auto) 1.3, Basophils (%) (Auto) 1.3, Sodium Level 130L, Potassium Level 4.3, Chloride Level 98, Carbon Dioxide Level 27, Anion Gap 5, Blood Urea Nitrogen 16, Creatinine 0.7, Estimat Glomerular Filtration Rate , Glucose Level 101, Calcium Level 9.3, Total Bilirubin 0.3, Aspartate Amino Transf (AST/SGOT) 13L, Alanine Aminotransferase (ALT/SGPT) 10L, Alkaline Phosphatase 100, Total Protein 6.2L, Albumin 2.1L, Globulin 4.1, Albumin/Globulin Ratio 0.5L, Osmolality [Pending], Uric Acid [Pending], Triglycerides Level 51, Cholesterol Level 100, LDL Cholesterol 57, HDL Cholesterol 36L, Cholesterol/HDL Ratio 2.8L, Thyroid Stimulating Hormone (TSH) [Pending], Free Thyroxine [Pending], Free Triiodothyronine [Pending], Cortisol [Pending] Current Medications Medications (Trade) Dose Ordered Sig/Casimiro Route PRN Reason Start Time Stop Time Status Last Admin Dose Admin Acetaminophen (Tylenol) 650 mg Q4H PRN ORAL fever 11/01/18 19:15 12/01/18 19:14 Al Hydroxide/Mg Hydroxide (Mylanta II) 30 ml Q6H PRN ORAL dyspepsia 11/01/18 19:15 12/01/18 19:14 Ceftriaxone Sodium (Rocephin) 1 gm DAILY IM 11/03/18 09:00 11/10/18 08:59 UNV Dextrose (Dextrose 50%) 25 ml Q30M PRN IV Hypoglycemia 11/01/18 19:15 12/01/18 19:14 Dextrose (Dextrose 50%) 50 ml Q30M PRN IV Hypoglycemia 11/01/18 19:30 12/01/18 19:29 Lorazepam (Ativan 2mg/ml 1ml) 0.5 mg Q4H PRN IV For Anxiety 11/01/18 19:15 11/08/18 19:14 Mirtazapine (Remeron) 15 mg QHS ORAL 11/02/18 21:00 12/02/18 20:59 Morphine Sulfate (Morphine Sulfate) 1 mg Q4H PRN IVP For Pain 11/01/18 19:15 11/08/18 19:14 Ondansetron HCl (Zofran) 4 mg Q6H PRN IVP Nausea & Vomiting 11/01/18 19:15 12/01/18 19:14 Polyethylene Glycol (Miralax) 17 gm HSPRN PRN ORAL Constipation 11/01/18 19:15 12/01/18 19:14 Sodium Chloride 1,000 ml @ 50 mls/hr Q20H IV 11/02/18 12:15 12/02/18 12:14 11/02/18 12:38 Zolpidem Tartrate (Ambien) 5 mg HSPRN PRN ORAL Insomnia 11/01/18 19:15 11/08/18 19:14 Jose Reese MD Nov 02, 2018 13:22
--- NOTE | 2018-11-02 13:42 | Diagnostic Imaging Report ---
Indication: Dyspnea Comparison: None A single view chest radiograph was obtained. Findings: There is suggestion of cavitation in an area of scarring involving the right lung apex. The scarring is characterized by linear opacities with adjacent pleural thickening. There is also questionable infiltrate in the right infrahilar region of the lung. The lungs are hyperexpanded. Heart is normal in size. The aorta is calcified and slightly ectatic. The bones are osteopenic. IMPRESSION: Pleural parenchymal scarring in the right lung apex. Underlying cavitation not excluded. Questionable infiltrate in the right lung base. COPD
--- NOTE | 2018-11-02 15:56 | GI Initial Consult Note ---
History of Present Illness General Date patient seen: Nov 02, 2018 Time patient seen: 15:49 Reason for Hospitalization: Generalized Weakness Referring physician: CHRISTOPHE ESCOTO Reason for Consultation: FTT Present Illness HPI Patient is an 83-year-old male sent in by nursing facility for increased generalized weakness. Patient reportedly had decreased oral intake. Patient had prior history of COPD. He had been noted to be losing weight. Patient states that he had not been vomiting. He was noted to have continued cough. GI consulted for FTT. ROS limited, patient seen NAD with no active s/sx of N/V/ D. Patient currently on regular diet, calorie count in progress. Initial reports of FTT per facility. Labs reviewed noted with anemia and electrolyte imbalance. Unknown history of endoscopy / colonoscopy. Home Meds Reported Medications Levothyroxine Sodium* (SYNTHROID*) 75 Mcg Tablet, 75 MCG ORAL DAILY for until 12/20 Take in the morning on an empty stomach, at least 30 minutes before food. 11/01/18 Levothyroxine Sodium* (SYNTHROID*) 100 Mcg Tablet, 50 MCG ORAL DAILY for until Take in the morning on an empty stomach, at least 30 minutes before food. 11/01/18 Levothyroxine Sodium* (SYNTHROID*) 100 Mcg Tablet, 100 MCG ORAL DAILY Take in the morning on an empty stomach, at least 30 minutes before food. 11/01/18 Ondansetron* (ZOFRAN*) 4 Mg Tablet, 4 MG ORAL Q4HR PRN for Nausea & Vomiting 11/01/18 Nitroglycerin (NITROSTAT) 0.4 Mg Tab.subl, 0.4 MG SL Q5M X3 DOSES PRN for CHEST PAIN 11/01/18 Multivitamin With Minerals (MULTIVITAMINS WITH MINERALS*) 1 Each Tablet, 1 TAB ORAL DAILY 11/01/18 Metoprolol Tartrate* (METOPROLOL TARTRATE*) 25 Mg Tablet, 25 MG ORAL EVERY 12 HOURS for HOLD SBP<110 or HR<60 11/01/18 Megestrol Acetate (MEGESTROL ACETATE) 400 Mg/10 Ml Oral.susp, 400 MG PO DAILY for POOR ORAL INTAKE 11/01/18 Al Hydroxide/mg Hydroxide (Mag-Al Plus Suspension) 30 Ml Oral.susp, 30 ML PO PRN for INDIGESTION 11/01/18 Lisinopril (LISINOPRIL*) 20 Mg Tablet, 20 MG ORAL BID for SBP<110 or HR<60 11/01/18 Ipratropium/Albuterol Sulfate (DuoNeb 0.5-3(2.5)mg/3ml) 3 Ml Ampul.neb, 3 ML HHN Q4HR PRN for Shortness of Breath 11/01/18 Guaifenesin* (ADULT WAL-TUSSIN*) 100 Mg/5 Ml Liquid, 10 ML ORAL Q4H PRN for For Cough 11/01/18 Ferrous Sulfate* (FERROUS SULFATE*) 325 Mg Tablet, 325 MG ORAL TWICE A DAY 11/01/18 Diphenhydramine Hcl* (DIPHENHYDRAMINE HCL*) 25 Mg Capsule, 25 MG ORAL Q4HR PRN for Itching 11/01/18 Clonidine Hcl* (CATAPRES*) 0.1 Mg Tablet, 0.1 MG ORAL EVERY 6 HOURS PRN for SBP> 160 or DBP>90 11/01/18 Acidophilus/Pectin, [place] (ACIDOPHILUS PROBIOTIC CAPSULE) 1 Each Capsule, 1 EACH PO DAILY 11/01/18 Acetaminophen* (ACETAMINOPHEN 325MG TABLET*) 325 Mg Tablet, 650 MG ORAL Q4H PRN for Mild Pain (Pain Scale 1-3) 11/01/18 Famotidine (PEPCID AC) 20 Mg Tablet, 20 MG PO EVERY 12 HOURS, TAB 11/01/18 Docusate Sodium* (COLACE*) 100 Mg Capsule, 100 MG ORAL TWICE A DAY, CAP 11/01/18 Ascorbic Acid* (ASCORBIC ACID*) 500 Mg Tablet, 500 MG ORAL TWICE A DAY, TAB 11/01/18 Med list reviewed/reconciled: Yes Allergies: Coded Allergies: No Known Allergies (Unverified , 11/01/18) Patient History Limited by: medical condition History Provided By: Medical Record PMH Narrative Past Medical History: see triage record Reviewed Nursing Documentation: PMH: Agreed; PSxH: Agreed Nursing Documentation-PMH Past Medical History: No History, Except For Hx Cardiac Problems: Yes - HF; anemia Hx Hypertension: Yes Hx COPD: Yes Review of Systems All Other Systems: negative except mentioned in HPI Physical Exam Vital Signs Date Time Temp Pulse Resp B/P (MAP) Pulse Ox O2 Delivery O2 Flow Rate FiO2 11/01/18 14:23 98.1 82 16 116/67 98 Nasal Cannula 3.0 Sp02 EP Interpretation: reviewed, normal Labs Laboratory Tests Test 11/02/18 05:26 White Blood Count 8.3 K/UL (4.8-10.8) Red Blood Count 3.05 M/UL (4.70-6.10) L Hemoglobin 8.4 G/DL (14.2-18.0) L Hematocrit 25.8 % (42.0-52.0) L Mean Corpuscular Volume 85 FL (80-99) Mean Corpuscular Hemoglobin 27.6 PG (27.0-31.0) Mean Corpuscular Hemoglobin Concent 32.6 G/DL (32.0-36.0) Red Cell Distribution Width 14.7 % (11.6-14.8) Platelet Count 339 K/UL (150-450) Mean Platelet Volume 5.4 FL (6.5-10.1) L Neutrophils (%) (Auto) 63.0 % (45.0-75.0) Lymphocytes (%) (Auto) 23.5 % (20.0-45.0) Monocytes (%) (Auto) 10.9 % (1.0-10.0) H Eosinophils (%) (Auto) 1.3 % (0.0-3.0) Basophils (%) (Auto) 1.3 % (0.0-2.0) Sodium Level 130 MMOL/L (136-145) L Potassium Level 4.3 MMOL/L (3.5-5.1) Chloride Level 98 MMOL/L (98-107) Carbon Dioxide Level 27 MMOL/L (21-32) Anion Gap 5 mmol/L (5-15) Blood Urea Nitrogen 16 mg/dL (7-18) Creatinine 0.7 MG/DL (0.55-1.30) Estimat Glomerular Filtration Rate mL/min (>60) Glucose Level 101 MG/DL (74-106) Osmolality 272 mOsm/kg (297-317) L Uric Acid 4.1 MG/DL (2.6-7.2) Calcium Level 9.3 MG/DL (8.5-10.1) Total Bilirubin 0.3 MG/DL (0.2-1.0) Aspartate Amino Transf (AST/SGOT) 13 U/L (15-37) L Alanine Aminotransferase (ALT/SGPT) 10 U/L (12-78) L Alkaline Phosphatase 100 U/L (46-116) Total Protein 6.2 G/DL (6.4-8.2) L Albumin 2.1 G/DL (3.4-5.0) L Globulin 4.1 g/dL Albumin/Globulin Ratio 0.5 (1.0-2.7) L Triglycerides Level 51 MG/DL (30-150) Cholesterol Level 100 MG/DL (< 200) LDL Cholesterol 57 mg/dL (<100) HDL Cholesterol 36 MG/DL (40-60) L Cholesterol/HDL Ratio 2.8 (3.3-4.4) L Thyroid Stimulating Hormone (TSH) 1.587 uiU/mL (0.358-3.740) Free Thyroxine 1.24 NG/DL (0.76-1.46) Free Triiodothyronine 1.4 pg/mL (2.3-4.2) L Cortisol Pending General Appearance: well appearing, no apparent distress, alert Head: normocephalic EENT: PERRL/EOMI, normal ENT inspection Neck: supple Respiratory: normal breath sounds, no respiratory distress Cardiovascular: normal rate Gastrointestinal: normal inspection, non tender, soft, normal bowel sounds, non -distended Rectal: deferred Genitourinary: deferred Musculoskeletal: normal inspection, back normal Neurologic: normal inspection, alert, oriented x3, responsive Psychiatric: normal inspection, judgement/insight normal, memory normal Skin: normal inspection, normal color, no rash, warm/dry, palpation normal, well hydrated Lymphatic: normal inspection, no adenopathy Current Medications Current Medications Medications (Trade) Dose Ordered Sig/Casimiro Route PRN Reason Start Time Stop Time Status Last Admin Dose Admin Acetaminophen (Tylenol) 650 mg Q4H PRN ORAL fever 11/01/18 19:15 12/01/18 19:14 Al Hydroxide/Mg Hydroxide (Mylanta II) 30 ml Q6H PRN ORAL dyspepsia 11/01/18 19:15 12/01/18 19:14 Ceftriaxone Sodium (Rocephin) 1 gm DAILY IM 11/03/18 09:00 11/10/18 08:59 UNV Dextrose (Dextrose 50%) 25 ml Q30M PRN IV Hypoglycemia 11/01/18 19:15 12/01/18 19:14 Dextrose (Dextrose 50%) 50 ml Q30M PRN IV Hypoglycemia 11/01/18 19:30 12/01/18 19:29 Lorazepam (Ativan 2mg/ml 1ml) 0.5 mg Q4H PRN IV For Anxiety 11/01/18 19:15 11/08/18 19:14 Mirtazapine (Remeron) 15 mg QHS ORAL 11/02/18 21:00 12/02/18 20:59 Morphine Sulfate (Morphine Sulfate) 1 mg Q4H PRN IVP For Pain 11/01/18 19:15 11/08/18 19:14 Ondansetron HCl (Zofran) 4 mg Q6H PRN IVP Nausea & Vomiting 11/01/18 19:15 12/01/18 19:14 Polyethylene Glycol (Miralax) 17 gm HSPRN PRN ORAL Constipation 11/01/18 19:15 12/01/18 19:14 Sodium Chloride 1,000 ml @ 50 mls/hr Q20H IV 11/02/18 12:15 12/02/18 12:14 11/02/18 12:38 Zolpidem Tartrate (Ambien) 5 mg HSPRN PRN ORAL Insomnia 11/01/18 19:15 11/08/18 19:14 GI: Plan Problems: (1) Failure to thrive (2) Generalized weakness (3) Hyponatremia (4) Severe anemia (5) Severe protein-calorie malnutrition Plan possible PEG pending work up follow up with ST evaluation fu calorie count to see if nutritional needs are met anemia work up OB stool r/o GI bleed monitor H&H, prn transfusions bowel regime ppi fu labs Discussed with Dr. Jean. Thank you for this patient referral, we will follow. The patient was seen and examined at bedside and all new and available data was reviewed in the patients chart. I agree with the above findings, impression and plan. (Patient seen earlier today. Signature stamp does not reflect patient encounter time.). - MD Delmi Huerta,[facility] HospitalStephen RV DETAILER Nov 02, 2018 15:56
[2018-11-02 16:00] VITALS: BP 103/58
--- NOTE | 2018-11-02 16:00 | History and Physical Report ---
DATE OF ADMISSION: 11/01/2018 CHIEF COMPLAINT: The patient is an 83-year-old male, who presents with chief complaint of generalized weakness and decreased appetite. HISTORY OF PRESENT ILLNESS: The patient is a resident of [facility]. Much of the history and physical is taken from the patient's chart. The patient is somnolent at this time. The patient apparently had been increasingly weak over the past week. The patient also had decreased appetite. The patient denies nausea and vomiting. The patient has a history of chronic obstructive pulmonary disease. The patient also has had a cough for the last week. Cough is nonproductive. The patient presented to [facility]. The patient was found to have urinary tract infection. The patient is admitted with generalized weakness and urinary tract infection. REVIEW OF SYSTEMS: Unable to assess secondary to the patient's mental status. PAST MEDICAL HISTORY: Significant for: 1. Chronic obstructive pulmonary disease. 2. Hypertension. 3. Congestive heart failure. 4. Gastroesophageal reflux disease. 5. Chronic anemia. PAST SURGICAL HISTORY: Significant for open reduction and internal fixation of right femoral fracture in October 2018. CURRENT MEDICATIONS: From [facility]: 1. Acetaminophen 650 mg p.o. q.4 h. p.r.n. 2. Pepcid 20 mg p.o. twice daily. 3. Iron sulfate 325 mg p.o. twice daily. 4. Lisinopril 20 mg p.o. twice daily. 5. Metoprolol 25 mg p.o. twice daily. 6. Synthroid 0.1 mg p.o. daily. 7. Tramadol 50 mg p.o. q.6. h. p.r.n. ALLERGIES: No known drug allergies. SOCIAL HISTORY: The patient is . The patient lives at [facility] as above. The patient denies current tobacco or alcohol use. The patient does have a history of smoking, however quit a couple of years ago. PHYSICAL EXAMINATION: VITAL SIGNS: Temperature 97.0, respirations 20, pulse 53, and blood pressure 105/43. GENERAL: The patient is a thin-appearing male, in no apparent distress. HEENT: Eyes, pupils are equal and responsive to light and accommodation. Extraocular movements are intact. NECK: Supple without lymphadenopathy. CHEST: Few crackles at bilateral bases. Otherwise, clear to auscultation without wheezes or rales. CARDIOVASCULAR: Regular rhythm and rate. S1 and S2 normal without murmurs, rubs, or gallops. ABDOMEN: Soft, nontender, and nondistended. Positive bowel sounds. No evidence of hepatosplenomegaly. Currently, no rebound or guarding noted. EXTREMITIES: Negative for clubbing, cyanosis, or edema. RECTAL/GENITAL: Refused. NEUROLOGIC: Cranial nerves II through XII are grossly intact without focal deficits. Motor strength is 5/5 bilaterally. Deep tendon reflexes are 2+ plantar. LABORATORY STUDIES: WBC 9.4, hemoglobin 8.9, hematocrit 27.8, and platelets 376,000. Sodium 130, potassium 4.0, chloride 96, CO2 29, BUN 17, and creatinine 0.8. Glucose 129. Troponin 0.005. Urinalysis showed 2+ protein, 2+ blood, 3+ leukocyte esterase with 20 to 30 wbc's. ASSESSMENT: This is an 83-year-old male with: 1. Urinary tract infection. 2. Hyponatremia. 3. Generalized weakness. 4. Chronic obstructive pulmonary disease. 5. Hypertension. 6. Congestive heart failure. 7. Gastroesophageal reflux disease. 8. Anorexia. TREATMENT: 1. Urinary tract infection. The patient has been started empirically on ceftriaxone. A urine culture and sensitivity are pending. Await ID and sensitivity of urine culture. 2. Hyponatremia. This may be secondary to decreased oral intake. The patient has been started empirically on normal saline intravenously. 3. Generalized weakness. 4. Anorexia. A speech therapy consultation has been obtained. A Gastroenterology consultation has been obtained. We will follow recommendations of GI and speech therapy. 5. Chronic obstructive pulmonary disease. A chest x-ray is pending. The patient may have bronchitis in light of recent nonproductive cough. The patient has been started empirically on ceftriaxone as above. A Pulmonary consultation has been obtained with Dr. Jose Reese. 6. Congestive heart failure. Current troponin is negative. BNP is pending. Cardiology consultation has been obtained and is pending. 7. Gastroesophageal reflux disease. Continue Pepcid as above. Clemente Miguel M.D. DR: LAINE JOB#: [id number] CC:
[2018-11-02 17:00] LABS: APPEARANCE,URINE CLEAR; BILIRUBIN, URINE NEGATIVE (NEGATIVE); COLOR,URINE YELLOW; GLUCOSE, URINE (UA) NEGATIVE (NEGATIVE); KETONES,URINE NEGATIVE (NEGATIVE); LEUKOCYTE ESTERASE ,URINE 3+ (NEGATIVE); NITRITE,URINE NEGATIVE (NEGATIVE); PH,URINE 5 (4.5-8.0); PROTEIN,URINE 2+ (NEGATIVE); UROBILINOGEN,URINE 4 MG/DL (0.0-1.0)
--- NOTE | 2018-11-02 17:33 | Cardiology Report ---
APPROVED REPORT EKG Measurement Heart [id number] Sinus bradycardia Nonspecific ST and T wave abnormality Abnormal ECG
[2018-11-02] MEDS ORDERED: Lidocaine 1% MPF 10mg/ml 5ml IM SCH (18:00)
[2018-11-02 20:00] VITALS: BP 105/51
[2018-11-02] MEDS: Heparin 5000 units/ml inj SUBQ SCH (20:35)
[2018-11-03] VITALS (7 sets, daily range): BP systolic 101–162; BP diastolic 44–127
[2018-11-03 07:02] LABS: HEMATOCRIT 25.3 % (42.0-52.0); HEMOGLOBIN 8.1 G/DL (14.2-18.0); MEAN CORPUSCULAR VOLUME 86 FL (80-99); PLATELET COUNT 335 K/UL (150-450); RED BLOOD COUNT 2.95 M/UL (4.70-6.10); RED CELL DISTRIBUTION WIDTH 14.7 % (11.6-14.8); WHITE BLOOD COUNT 7.8 K/UL (4.8-10.8)
[2018-11-03 07:20] LABS: ANION GAP 3 mmol/L (5-15); BLOOD UREA NITROGEN 15 mg/dL (7-18); CARBON DIOXIDE 32 MMOL/L (21-32); CHLORIDE 100 MMOL/L (98-107); CREATININE 0.7 MG/DL (0.55-1.30); POTASSIUM 4.2 MMOL/L (3.5-5.1); SODIUM 135 MMOL/L (136-145)
[2018-11-03 07:53] LABS: % IRON SATURATION 19 % (15-50); IRON 27 ug/dL (50-175); LACTATE DEHYDROGENASE 224 U/L (81-234); TOTAL IRON BINDING CAPACITY 140 ug/dL (250-450)
[2018-11-03] MEDS ORDERED: cefTRIAXone 1gm/D5W 55ml IVPB SCH ×2 (09:00)
[2018-11-03] MEDS: Heparin 5000 units/ml inj SUBQ SCH ×2 (09:30→20:11)
--- NOTE | 2018-11-03 10:35 | GI Progress Note ---
Assessment/Plan Problems: (1) Severe protein-calorie malnutrition ICD Codes: E43 - Unspecified severe protein-calorie malnutrition SNOMED: 239767524 (2) Severe anemia ICD Codes: D64.9 - Anemia, unspecified SNOMED: 275594118 (3) Failure to thrive SNOMED: 03317077 (4) Generalized weakness ICD Codes: R53.1 - Weakness SNOMED: 59744460 Status: unchanged Status Narrative Discussed with Dr. Jean. Assessment/Plan Anemia workup reviewed follow up with ST evaluation fu calorie count to see if nutritional needs are met patient on diet, will require 1:1 feeder OB stool r/o GI bleed monitor H&H, prn transfusions bowel regime ppi fu labs We will consider PEG if necessary The patient was seen and examined at bedside and all new and available data was reviewed in the patients chart. I agree with the above findings, impression and plan. (Patient seen earlier today. Signature stamp does not reflect patient encounter time.). - Darío Jean MD Subjective Subjective Patient dislikes eggs, states that he will try to eat more for lunch Denies any abdominal pain, nausea or vomiting Objective Last 24 Hour Vital Signs Date Time Temp Pulse Resp B/P (MAP) Pulse Ox O2 Delivery O2 Flow Rate FiO2 11/03/18 08:00 97.0 70 20 144/91 (108) 96 11/03/18 04:00 98.1 57 17 128/73 (91) 98 11/03/18 04:00 57 11/03/18 00:00 98.6 61 16 101/56 (71) 97 11/03/18 00:00 61 11/02/18 21:00 Nasal Cannula 2.0 11/02/18 20:00 65 11/02/18 20:00 98.7 65 17 105/51 (69) 97 11/02/18 16:00 97.6 73 20 103/58 (73) 98 11/02/18 16:00 64 11/02/18 12:00 97.6 61 20 106/54 (71) 96 11/02/18 12:00 62 Intake and Output 11/02/18 11/03/18 19:00 07:00 Intake Total 670 ml Output Total 200 ml 800 ml Balance -200 ml -130 ml Intake Oral 120 ml IV Total 550 ml Output Urine Total 200 ml 800 ml # Bowel Movements 1 Laboratory Tests Test 11/02/18 14:00 11/02/18 15:00 11/03/18 06:00 Stool Occult Blood Pending Urine Color Yellow Urine Appearance Clear Urine pH 5 (4.5-8.0) Urine Specific [place] 1.015 (1.005-1.035) Urine Protein 2+ (NEGATIVE) H Urine Glucose (UA) Negative (NEGATIVE) Urine Ketones Negative (NEGATIVE) Urine Blood 1+ (NEGATIVE) H Urine Nitrite Negative (NEGATIVE) Urine Bilirubin Negative (NEGATIVE) Urine Urobilinogen 4 MG/DL (0.0-1.0) H Urine Leukocyte Esterase 3+ (NEGATIVE) H Urine RBC 0-2 /HPF (0 - 0) H Urine WBC 20-30 /HPF (0 - 0) H Urine Squamous Epithelial Cells None /LPF (NONE/OCC) Urine Bacteria Few /HPF (NONE) Urine Osmolality 680 mOsm/kg (429-449) H Urine Random Sodium 70 mmol/L (20-110) White Blood Count 7.8 K/UL (4.8-10.8) Red Blood Count 2.95 M/UL (4.70-6.10) L Hemoglobin 8.1 G/DL (14.2-18.0) L Hematocrit 25.3 % (42.0-52.0) L Mean Corpuscular Volume 86 FL (80-99) Mean Corpuscular Hemoglobin 27.5 PG (27.0-31.0) Mean Corpuscular Hemoglobin Concent 32.1 G/DL (32.0-36.0) Red Cell Distribution Width 14.7 % (11.6-14.8) Platelet Count 335 K/UL (150-450) Mean Platelet Volume 4.9 FL (6.5-10.1) L Neutrophils (%) (Auto) % (45.0-75.0) Lymphocytes (%) (Auto) % (20.0-45.0) Monocytes (%) (Auto) % (1.0-10.0) Eosinophils (%) (Auto) % (0.0-3.0) Basophils (%) (Auto) % (0.0-2.0) Differential Total Cells Counted 100 Neutrophils % (Manual) 70 % (45-75) Lymphocytes % (Manual) 22 % (20-45) Monocytes % (Manual) 7 % (1-10) Eosinophils % (Manual) 1 % (0-3) Basophils % (Manual) 0 % (0-2) Band Neutrophils 0 % (0-8) Platelet Estimate Adequate Platelet Morphology Normal Hypochromasia 1+ Anisocytosis 1+ Schistocytes Occasional Erythrocyte Sedimentation Rate 100 MM/HR (0-20) H Reticulocyte Count Pending Prothrombin Time 11.0 SEC (9.30-11.50) Prothromb Time International Ratio 1.0 (0.9-1.1) Activated Partial Thromboplast Time 29 SEC (23-33) Sodium Level 135 MMOL/L (136-145) L Potassium Level 4.2 MMOL/L (3.5-5.1) Chloride Level 100 MMOL/L (98-107) Carbon Dioxide Level 32 MMOL/L (21-32) Anion Gap 3 mmol/L (5-15) L Blood Urea Nitrogen 15 mg/dL (7-18) Creatinine 0.7 MG/DL (0.55-1.30) Estimat Glomerular Filtration Rate mL/min (>60) Glucose Level 92 MG/DL (74-106) Calcium Level 9.0 MG/DL (8.5-10.1) Iron Level 27 ug/dL (50-175) L Total Iron Binding Capacity 140 ug/dL (250-450) L Percent Iron Saturation 19 % (15-50) Unsaturated Iron Binding 113 ug/dL (112-346) Lactate Dehydrogenase 224 U/L (81-234) Carcinoembryonic Antigen Pending Vitamin B12 Level 331 PG/ML (193-986) Folate 3.1 NG/ML (8.6-58.9) L Height (Feet): 5 Height (Inches): 11.00 Weight (Pounds): 109 General Appearance: WD/WN, no apparent distress, alert, thin Cardiovascular: normal rate Respiratory/Chest: normal breath sounds, no respiratory distress Abdominal Exam: normal bowel sounds, non tender, soft Extremities: non-tender Svitlana Awad NP Nov 03, 2018 10:35
--- NOTE | 2018-11-03 12:16 | Pulmonology Progress Note ---
Assessment/Plan Problems: (1) Severe anemia (2) Hyponatremia (3) COPD (chronic obstructive pulmonary disease) (4) Severe protein-calorie malnutrition (5) Failure to thrive (6) Hypothyroidism (7) HTN (hypertension) Assessment/Plan w/u in progress stool for OB check Na monitor BP nutrition evaluation Speech pathologist: FOR QUALITY OF LIFE, CONTINUE SOFT, EASY CHEW WITH THIN LIQUIDS DIET WITH STRICT ASPIRATION PRECAUTIONS. Subjective ROS Limited/Unobtainable: No Constitutional: Reports: no symptoms HEENT: Repors: no symptoms Allergies: Coded Allergies: No Known Allergies (Unverified , 11/01/18) Objective Last 24 Hour Vital Signs Date Time Temp Pulse Resp B/P (MAP) Pulse Ox O2 Delivery O2 Flow Rate FiO2 11/03/18 09:00 Nasal Cannula 2.0 11/03/18 08:00 97.0 70 20 144/91 (108) 96 11/03/18 04:00 98.1 57 17 128/73 (91) 98 11/03/18 04:00 57 11/03/18 00:00 98.6 61 16 101/56 (71) 97 11/03/18 00:00 61 11/02/18 21:00 Nasal Cannula 2.0 11/02/18 20:00 65 11/02/18 20:00 98.7 65 17 105/51 (69) 97 11/02/18 16:00 97.6 73 20 103/58 (73) 98 11/02/18 16:00 64 Intake and Output 11/02/18 11/03/18 19:00 07:00 Intake Total 670 ml Output Total 200 ml 800 ml Balance -200 ml -130 ml Intake Oral 120 ml IV Total 550 ml Output Urine Total 200 ml 800 ml # Bowel Movements 1 General Appearance: cachetic HEENT: normocephalic, atraumatic Respiratory/Chest: chest wall non-tender, normal breath sounds Cardiovascular: normal peripheral pulses, regular rhythm Abdomen: normal bowel sounds, soft, non tender Extremities: no cyanosis Skin: no rash Microbiology Date/Time Source Procedure Growth Status 11/01/18 15:10 Blood Blood Culture - Preliminary NO GROWTH AFTER 24 HOURS Resulted 11/01/18 14:56 Blood Blood Culture - Preliminary NO GROWTH AFTER 24 HOURS Resulted 11/01/18 17:10 Nasal Nares Left MRSA Culture - Final NO METHICILLIN RESISTANT STAPH AUREUS... Complete 11/02/18 15:00 Urine,Clean Catch Urine Culture - Preliminary NO GROWTH Resulted 11/01/18 15:20 Urine,Clean Catch Urine Culture - Preliminary NO GROWTH Resulted 11/01/18 17:10 Rectum VRE Culture - Final NO VANCOMYCIN RESISTANT ENTEROCOCCUS ... Resulted 11/01/18 17:10 Rectum Pending Resulted Laboratory Tests 11/02/18 14:00: Stool Occult Blood Negative 11/02/18 15:00: Urine Color Yellow, Urine Appearance Clear, Urine pH 5, Urine Specific [place] 1.015, Urine Protein 2+H, Urine Glucose (UA) Negative, Urine Ketones Negative, Urine Blood 1+H, Urine Nitrite Negative, Urine Bilirubin Negative, Urine Urobilinogen 4H, Urine Leukocyte Esterase 3+H, Urine RBC 0-2H, Urine WBC 20-30H , Urine Squamous Epithelial Cells None, Urine Bacteria Few, Urine Osmolality 680H, Urine Random Sodium 70 11/03/18 06:00: White Blood Count 7.8, Red Blood Count 2.95L, Hemoglobin 8.1L, Hematocrit 25.3L , Mean Corpuscular Volume 86, Mean Corpuscular Hemoglobin 27.5, Mean Corpuscular Hemoglobin Concent 32.1, Red Cell Distribution Width 14.7, Platelet Count 335, Mean Platelet Volume 4.9L, Neutrophils (%) (Auto) , Lymphocytes (%) ( Auto) , Monocytes (%) (Auto) , Eosinophils (%) (Auto) , Basophils (%) (Auto) , Differential Total Cells Counted 100, Neutrophils % (Manual) 70, Lymphocytes % ( Manual) 22, Monocytes % (Manual) 7, Eosinophils % (Manual) 1, Basophils % ( Manual) 0, Band Neutrophils 0, Platelet Estimate Adequate, Platelet Morphology Normal, Hypochromasia 1+, Anisocytosis 1+, Schistocytes Occasional, Erythrocyte Sedimentation Rate 100H, Reticulocyte Count 0.7, Prothrombin Time 11.0, Prothromb Time International Ratio 1.0, Activated Partial Thromboplast Time 29, Sodium Level 135L, Potassium Level 4.2, Chloride Level 100, Carbon Dioxide Level 32, Anion Gap 3L, Blood Urea Nitrogen 15, Creatinine 0.7, Estimat Glomerular Filtration Rate , Glucose Level 92, Calcium Level 9.0, Iron Level 27L , Total Iron Binding Capacity 140L, Percent Iron Saturation 19, Unsaturated Iron Binding 113, Lactate Dehydrogenase 224, Carcinoembryonic Antigen [Pending] , Vitamin B12 Level 331, Folate 3.1L Current Medications Medications (Trade) Dose Ordered Sig/Casimiro Route PRN Reason Start Time Stop Time Status Last Admin Dose Admin Acetaminophen (Tylenol) 650 mg Q4H PRN ORAL fever 11/01/18 19:15 12/01/18 19:14 Al Hydroxide/Mg Hydroxide (Mylanta II) 30 ml Q6H PRN ORAL dyspepsia 11/01/18 19:15 12/01/18 19:14 Ceftriaxone Sodium 1 gm/ Dextrose 55 ml @ 110 mls/hr DAILY IVPB 11/03/18 09:00 11/10/18 08:59 11/03/18 10:20 Dextrose (Dextrose 50%) 25 ml Q30M PRN IV Hypoglycemia 11/01/18 19:15 12/01/18 19:14 Dextrose (Dextrose 50%) 50 ml Q30M PRN IV Hypoglycemia 11/01/18 19:30 12/01/18 19:29 Heparin Sodium (Porcine) (Heparin 5000 units/ml) 5,000 units EVERY 12 HOURS SUBQ 11/02/18 21:00 12/02/18 20:59 11/03/18 09:30 Lorazepam (Ativan 2mg/ml 1ml) 0.5 mg Q4H PRN IV For Anxiety 11/01/18 19:15 11/08/18 19:14 Mirtazapine (Remeron) 15 mg QHS ORAL 11/02/18 21:00 12/02/18 20:59 11/02/18 20:33 Morphine Sulfate (Morphine Sulfate) 1 mg Q4H PRN IVP For Pain 11/01/18 19:15 11/08/18 19:14 Ondansetron HCl (Zofran) 4 mg Q6H PRN IVP Nausea & Vomiting 11/01/18 19:15 12/01/18 19:14 Polyethylene Glycol (Miralax) 17 gm HSPRN PRN ORAL Constipation 11/01/18 19:15 12/01/18 19:14 Sodium Chloride 1,000 ml @ 50 mls/hr Q20H IV 11/02/18 12:15 12/02/18 12:14 11/03/18 09:28 Zolpidem Tartrate (Ambien) 5 mg HSPRN PRN ORAL Insomnia 11/01/18 19:15 11/08/18 19:14 Jose Reese MD Nov 03, 2018 12:16
--- NOTE | 2018-11-03 17:55 | Internal Med Progress Note ---
Subjective Date of Service: Nov 03, 2018 Physician Name Clemente Miguel Attending Physician Aakash Urias MD Current Medications Medications (Trade) Dose Ordered Sig/Casimiro Route PRN Reason Start Time Stop Time Status Last Admin Dose Admin Acetaminophen (Tylenol) 650 mg Q4H PRN ORAL fever 11/01/18 19:15 12/01/18 19:14 Al Hydroxide/Mg Hydroxide (Mylanta II) 30 ml Q6H PRN ORAL dyspepsia 11/01/18 19:15 12/01/18 19:14 Ceftriaxone Sodium 1 gm/ Dextrose 55 ml @ 110 mls/hr DAILY IVPB 11/03/18 09:00 11/10/18 08:59 11/03/18 10:20 Dextrose (Dextrose 50%) 25 ml Q30M PRN IV Hypoglycemia 11/01/18 19:15 12/01/18 19:14 Dextrose (Dextrose 50%) 50 ml Q30M PRN IV Hypoglycemia 11/01/18 19:30 12/01/18 19:29 Heparin Sodium (Porcine) (Heparin 5000 units/ml) 5,000 units EVERY 12 HOURS SUBQ 11/02/18 21:00 12/02/18 20:59 11/03/18 09:30 Lorazepam (Ativan 2mg/ml 1ml) 0.5 mg Q4H PRN IV For Anxiety 11/01/18 19:15 11/08/18 19:14 Mirtazapine (Remeron) 15 mg QHS ORAL 11/02/18 21:00 12/02/18 20:59 11/02/18 20:33 Morphine Sulfate (Morphine Sulfate) 1 mg Q4H PRN IVP For Pain 11/01/18 19:15 11/08/18 19:14 Ondansetron HCl (Zofran) 4 mg Q6H PRN IVP Nausea & Vomiting 11/01/18 19:15 12/01/18 19:14 Polyethylene Glycol (Miralax) 17 gm HSPRN PRN ORAL Constipation 11/01/18 19:15 12/01/18 19:14 Sodium Chloride 1,000 ml @ 50 mls/hr Q20H IV 11/02/18 12:15 12/02/18 12:14 11/03/18 09:28 Zolpidem Tartrate (Ambien) 5 mg HSPRN PRN ORAL Insomnia 11/01/18 19:15 11/08/18 19:14 Allergies: Coded Allergies: No Known Allergies (Unverified , 11/01/18) ROS Limited/Unobtainable: No Constitutional: Reports: no symptoms HEENT: Reports: no symptoms Cardiovascular: Reports: no symptoms Respiratory: Reports: no symptoms Gastrointestinal/Abdominal: Reports: no symptoms Genitourinary: Reports: no symptoms Neurologic/Psychiatric: Reports: no symptoms Subjective 83 YO M admitted with gen weakness. Now UTI. Cover for Int Alex-DR Urias Objective Last Vital Signs Date Time Temp Pulse Resp B/P (MAP) Pulse Ox O2 Delivery O2 Flow Rate FiO2 11/03/18 16:56 132/64 (86) 11/03/18 16:00 97.2 75 22 96 11/03/18 09:00 Nasal Cannula 2.0 Laboratory Tests Test 11/03/18 06:00 White Blood Count 7.8 K/UL (4.8-10.8) Red Blood Count 2.95 M/UL (4.70-6.10) L Hemoglobin 8.1 G/DL (14.2-18.0) L Hematocrit 25.3 % (42.0-52.0) L Mean Corpuscular Volume 86 FL (80-99) Mean Corpuscular Hemoglobin 27.5 PG (27.0-31.0) Mean Corpuscular Hemoglobin Concent 32.1 G/DL (32.0-36.0) Red Cell Distribution Width 14.7 % (11.6-14.8) Platelet Count 335 K/UL (150-450) Mean Platelet Volume 4.9 FL (6.5-10.1) L Neutrophils (%) (Auto) % (45.0-75.0) Lymphocytes (%) (Auto) % (20.0-45.0) Monocytes (%) (Auto) % (1.0-10.0) Eosinophils (%) (Auto) % (0.0-3.0) Basophils (%) (Auto) % (0.0-2.0) Differential Total Cells Counted 100 Neutrophils % (Manual) 70 % (45-75) Lymphocytes % (Manual) 22 % (20-45) Monocytes % (Manual) 7 % (1-10) Eosinophils % (Manual) 1 % (0-3) Basophils % (Manual) 0 % (0-2) Band Neutrophils 0 % (0-8) Platelet Estimate Adequate Platelet Morphology Normal Hypochromasia 1+ Anisocytosis 1+ Schistocytes Occasional Erythrocyte Sedimentation Rate 100 MM/HR (0-20) H Reticulocyte Count 0.7 % (0.0-2.0) Prothrombin Time 11.0 SEC (9.30-11.50) Prothromb Time International Ratio 1.0 (0.9-1.1) Activated Partial Thromboplast Time 29 SEC (23-33) Sodium Level 135 MMOL/L (136-145) L Potassium Level 4.2 MMOL/L (3.5-5.1) Chloride Level 100 MMOL/L (98-107) Carbon Dioxide Level 32 MMOL/L (21-32) Anion Gap 3 mmol/L (5-15) L Blood Urea Nitrogen 15 mg/dL (7-18) Creatinine 0.7 MG/DL (0.55-1.30) Estimat Glomerular Filtration Rate mL/min (>60) Glucose Level 92 MG/DL (74-106) Calcium Level 9.0 MG/DL (8.5-10.1) Iron Level 27 ug/dL (50-175) L Total Iron Binding Capacity 140 ug/dL (250-450) L Percent Iron Saturation 19 % (15-50) Unsaturated Iron Binding 113 ug/dL (112-346) Lactate Dehydrogenase 224 U/L (81-234) Carcinoembryonic Antigen Pending Vitamin B12 Level 331 PG/ML (193-986) Folate 3.1 NG/ML (8.6-58.9) L Microbiology Date/Time Source Procedure Growth Status 11/01/18 15:10 Blood Blood Culture - Preliminary NO GROWTH AFTER 24 HOURS Resulted 11/01/18 14:56 Blood Blood Culture - Preliminary NO GROWTH AFTER 24 HOURS Resulted 11/01/18 17:10 Nasal Nares Left MRSA Culture - Final NO METHICILLIN RESISTANT STAPH AUREUS... Complete 11/02/18 15:00 Urine,Clean Catch Urine Culture - Preliminary NO GROWTH Resulted 11/01/18 15:20 Urine,Clean Catch Urine Culture - Preliminary NO GROWTH Resulted 11/01/18 17:10 Rectum VRE Culture - Final NO VANCOMYCIN RESISTANT ENTEROCOCCUS ... Resulted 11/01/18 17:10 Rectum Pending Resulted Intake and Output 11/02/18 11/03/18 19:00 07:00 Intake Total 670 ml Output Total 200 ml 800 ml Balance -200 ml -130 ml Intake Oral 120 ml IV Total 550 ml Output Urine Total 200 ml 800 ml # Bowel Movements 1 Objective PHYSICAL EXAMINATION: GENERAL: The patient is a thin-appearing male, in no apparent distress. HEENT: Eyes, pupils are equal and responsive to light and accommodation. Extraocular movements are intact. NECK: Supple without lymphadenopathy. CHEST: Few crackles at bilateral bases. Otherwise, clear to auscultation without wheezes or rales. CARDIOVASCULAR: Regular rhythm and rate. S1 and S2 normal without murmurs, rubs, or gallops. ABDOMEN: Soft, nontender, and nondistended. Positive bowel sounds. No evidence of hepatosplenomegaly. Currently, no rebound or guarding noted. EXTREMITIES: Negative for clubbing, cyanosis, or edema. RECTAL/GENITAL: Refused. NEUROLOGIC: Cranial nerves II through XII are grossly intact without focal deficits. Motor strength is 5/5 bilaterally. Deep tendon reflexes are 2+ plantar. Assessment/Plan Assessment/Plan ASSESSMENT: This is an 83-year-old male with: 1. Urinary tract infection. 2. Hyponatremia. 3. Generalized weakness. 4. Chronic obstructive pulmonary disease. 5. Hypertension. 6. Congestive heart failure. 7. Gastroesophageal reflux disease. 8. Anorexia. TREATMENT: 1. Urinary tract infection. The patient has been started empirically on ceftriaxone. A urine culture and sensitivity are pending. Await ID and sensitivity of urine culture. 2. Hyponatremia. This may be secondary to decreased oral intake. The patient has been started empirically on normal saline intravenously. 3. Generalized weakness. 4. Anorexia. A speech therapy consultation has been obtained. A Gastroenterology consultation has been obtained. We will follow recommendations of GI and speech therapy. 5. Chronic obstructive pulmonary disease. A chest x-ray is pending. The patient may have bronchitis in light of recent nonproductive cough. The patient has been started empirically on ceftriaxone as above. A Pulmonary consultation has been obtained with Dr. Jose Reese. 6. Congestive heart failure. Current troponin is negative. BNP is pending. Cardiology consultation has been obtained and is pending. 7. Gastroesophageal reflux disease. Continue Pepcid as above. Clemente Miguel MD Nov 03, 2018 17:55
--- NOTE | 2018-11-03 20:36 | General Progress Note ---
Assessment/Plan Status: unchanged Assessment/Plan failure to thrive cognitive impairment mdd Remeron 15mg po qhs provided ro/st Subjective Neurologic/Psychiatric: Reports: anxiety, depressed Allergies: Coded Allergies: No Known Allergies (Unverified , 11/01/18) Objective Last 24 Hour Vital Signs Date Time Temp Pulse Resp B/P (MAP) Pulse Ox O2 Delivery O2 Flow Rate FiO2 11/03/18 16:56 132/64 (86) 11/03/18 16:00 97.2 75 22 162/127 (139) 96 11/03/18 16:00 58 11/03/18 12:00 55 11/03/18 12:00 97.0 58 19 122/44 (70) 96 11/03/18 09:00 Nasal Cannula 2.0 11/03/18 08:00 97.0 70 20 144/91 (108) 96 11/03/18 08:00 51 11/03/18 04:00 98.1 57 17 128/73 (91) 98 11/03/18 04:00 57 11/03/18 00:00 98.6 61 16 101/56 (71) 97 11/03/18 00:00 61 11/02/18 21:00 Nasal Cannula 2.0 Intake and Output 11/02/18 11/03/18 19:00 07:00 Intake Total 670 ml Output Total 200 ml 800 ml Balance -200 ml -130 ml Intake Oral 120 ml IV Total 550 ml Output Urine Total 200 ml 800 ml # Bowel Movements 1 Laboratory Tests 11/03/18 06:00: White Blood Count 7.8, Red Blood Count 2.95L, Hemoglobin 8.1L, Hematocrit 25.3L , Mean Corpuscular Volume 86, Mean Corpuscular Hemoglobin 27.5, Mean Corpuscular Hemoglobin Concent 32.1, Red Cell Distribution Width 14.7, Platelet Count 335, Mean Platelet Volume 4.9L, Neutrophils (%) (Auto) , Lymphocytes (%) ( Auto) , Monocytes (%) (Auto) , Eosinophils (%) (Auto) , Basophils (%) (Auto) , Differential Total Cells Counted 100, Neutrophils % (Manual) 70, Lymphocytes % ( Manual) 22, Monocytes % (Manual) 7, Eosinophils % (Manual) 1, Basophils % ( Manual) 0, Band Neutrophils 0, Platelet Estimate Adequate, Platelet Morphology Normal, Hypochromasia 1+, Anisocytosis 1+, Schistocytes Occasional, Erythrocyte Sedimentation Rate 100H, Reticulocyte Count 0.7, Prothrombin Time 11.0, Prothromb Time International Ratio 1.0, Activated Partial Thromboplast Time 29, Sodium Level 135L, Potassium Level 4.2, Chloride Level 100, Carbon Dioxide Level 32, Anion Gap 3L, Blood Urea Nitrogen 15, Creatinine 0.7, Estimat Glomerular Filtration Rate , Glucose Level 92, Calcium Level 9.0, Iron Level 27L , Total Iron Binding Capacity 140L, Percent Iron Saturation 19, Unsaturated Iron Binding 113, Lactate Dehydrogenase 224, Carcinoembryonic Antigen [Pending] , Vitamin B12 Level 331, Folate 3.1L Height (Feet): 5 Height (Inches): 11.00 Weight (Pounds): 109 General Appearance: alert Neurologic: depressed affect Cali Gonzales MD Nov 03, 2018 20:36
[2018-11-04] VITALS: BP 135/66
[2018-11-04] MEDS ORDERED: Albuterol/Ipratropium 3ml neb HHN PRN ×2 (00:30→07:00)
[2018-11-04 04:00] VITALS: BP 148/65
[2018-11-04] MEDS ORDERED: Morphine Sulfate 4mg/ml Inj (IV/IM USE ONLY) IVP PRN (07:15)
[2018-11-04] MEDS ORDERED: Mylanta II UD 30ml ORAL PRN (07:15)
[2018-11-04] MEDS ORDERED: LORazepam Inj 2mg/ml 1ml IV PRN (07:15)
[2018-11-04 08:00] VITALS: BP 132/61
[2018-11-04] MEDS ORDERED: Heparin 5000 units/ml inj SUBQ SCH (09:00)
[2018-11-04] MEDS ORDERED: cefTRIAXone 1 GM in D5W 55 ML IVPB SCH (09:00)
[2018-11-04 09:33] LABS: BASOPHILS % (AUTO) 0.9 % (0.0-2.0); EOSINOPHILS % (AUTO) 1.9 % (0.0-3.0); HEMATOCRIT 28.7 % (42.0-52.0); LYMPHOCYTES % (AUTO) 19.6 % (20.0-45.0); MEAN CORPUSCULAR VOLUME 86 FL (80-99); MONOCYTES % (AUTO) 7.9 % (1.0-10.0); NEUTROPHILS % (AUTO) 69.8 % (45.0-75.0); PLATELET COUNT 400 K/UL (150-450); RED BLOOD COUNT 3.32 M/UL (4.70-6.10); RED CELL DISTRIBUTION WIDTH 14.7 % (11.6-14.8); WHITE BLOOD COUNT 8.4 K/UL (4.8-10.8)
[2018-11-04 09:44] LABS: ANION GAP 6 mmol/L (5-15); BLOOD UREA NITROGEN 14 mg/dL (7-18); CALCIUM 9.4 MG/DL (8.5-10.1); CARBON DIOXIDE 31 MMOL/L (21-32); CHLORIDE 97 MMOL/L (98-107); CREATININE 0.7 MG/DL (0.55-1.30); POTASSIUM 3.8 MMOL/L (3.5-5.1); SODIUM 134 MMOL/L (136-145)
--- NOTE | 2018-11-04 11:17 | GI Progress Note ---
Assessment/Plan Problems: (1) Severe protein-calorie malnutrition ICD Codes: E43 - Unspecified severe protein-calorie malnutrition SNOMED: 361673427 (2) Severe anemia ICD Codes: D64.9 - Anemia, unspecified SNOMED: 453623435 (3) Failure to thrive SNOMED: 09331346 (4) Generalized weakness ICD Codes: R53.1 - Weakness SNOMED: 20722505 Status: stable, unchanged Status Narrative Discussed with Dr. Jean. Assessment/Plan Anemia workup reviewed >> folate deficiency OB stool r/o GI bleed. negative patient on diet, will require 1:1 feeder fu calorie count to see if nutritional needs are met folate monitor H&H, prn transfusions bowel regime ppi fu labs defer PEG at this time, supportive care with strict aspiration precautions dc planning The patient was seen and examined at bedside and all new and available data was reviewed in the patients chart. I agree with the above findings, impression and plan. (Patient seen earlier today. Signature stamp does not reflect patient encounter time.). - Darío Jean MD Subjective Subjective Patient dislikes eggs, states that he will try to eat more for lunch Denies any abdominal pain, nausea or vomiting Objective Last 24 Hour Vital Signs Date Time Temp Pulse Resp B/P (MAP) Pulse Ox O2 Delivery O2 Flow Rate FiO2 11/04/18 09:00 Nasal Cannula 2.0 11/04/18 08:00 97.8 60 18 132/61 (84) 95 11/04/18 04:13 66 18 92 Nasal Cannula 2.0 28 11/04/18 04:00 55 11/04/18 04:00 97.5 108 15 148/65 (92) 93 11/04/18 00:00 66 11/04/18 00:00 97.8 100 17 135/66 (89) 97 11/03/18 21:00 Nasal Cannula 2.0 11/03/18 20:00 72 11/03/18 20:00 97.3 74 16 136/58 (84) 97 11/03/18 16:56 132/64 (86) 11/03/18 16:00 97.2 75 22 162/127 (139) 96 11/03/18 16:00 58 11/03/18 12:00 55 11/03/18 12:00 97.0 58 19 122/44 (70) 96 Intake and Output 11/03/18 11/04/18 19:00 07:00 Intake Total 400 ml Output Total 400 ml 1500 ml Balance 0 ml -1500 ml IV Total 400 ml Output Urine Total 400 ml 1500 ml Laboratory Tests Test 11/04/18 09:15 White Blood Count 8.4 K/UL (4.8-10.8) Red Blood Count 3.32 M/UL (4.70-6.10) L Hemoglobin 9.0 G/DL (14.2-18.0) L Hematocrit 28.7 % (42.0-52.0) L Mean Corpuscular Volume 86 FL (80-99) Mean Corpuscular Hemoglobin 27.2 PG (27.0-31.0) Mean Corpuscular Hemoglobin Concent 31.4 G/DL (32.0-36.0) L Red Cell Distribution Width 14.7 % (11.6-14.8) Platelet Count 400 K/UL (150-450) Mean Platelet Volume 4.7 FL (6.5-10.1) L Neutrophils (%) (Auto) 69.8 % (45.0-75.0) Lymphocytes (%) (Auto) 19.6 % (20.0-45.0) L Monocytes (%) (Auto) 7.9 % (1.0-10.0) Eosinophils (%) (Auto) 1.9 % (0.0-3.0) Basophils (%) (Auto) 0.9 % (0.0-2.0) Sodium Level 134 MMOL/L (136-145) L Potassium Level 3.8 MMOL/L (3.5-5.1) Chloride Level 97 MMOL/L (98-107) L Carbon Dioxide Level 31 MMOL/L (21-32) Anion Gap 6 mmol/L (5-15) Blood Urea Nitrogen 14 mg/dL (7-18) Creatinine 0.7 MG/DL (0.55-1.30) Estimat Glomerular Filtration Rate mL/min (>60) Glucose Level 119 MG/DL (74-106) H Calcium Level 9.4 MG/DL (8.5-10.1) Height (Feet): 5 Height (Inches): 11.00 Weight (Pounds): 124 General Appearance: WD/WN, no apparent distress, alert, thin Cardiovascular: normal rate Respiratory/Chest: normal breath sounds, no respiratory distress Abdominal Exam: normal bowel sounds, non tender, soft Extremities: non-tender Svitlana Awad NP Nov 04, 2018 11:17
[2018-11-04 12:00] VITALS: BP 128/65
--- NOTE | 2018-11-04 14:34 | Pulmonology Progress Note ---
Assessment/Plan Problems: (1) Severe anemia (2) Hyponatremia (3) COPD (chronic obstructive pulmonary disease) (4) Severe protein-calorie malnutrition (5) Failure to thrive (6) Hypothyroidism (7) HTN (hypertension) Assessment/Plan w/u in progress stool for OB check Na monitor BP nutrition evaluation 1:1 feeding, aspiration precaution. Subjective ROS Limited/Unobtainable: No Constitutional: Reports: no symptoms HEENT: Repors: no symptoms Respiratory: Reports: no symptoms Allergies: Coded Allergies: No Known Allergies (Unverified , 11/01/18) Objective Last 24 Hour Vital Signs Date Time Temp Pulse Resp B/P (MAP) Pulse Ox O2 Delivery O2 Flow Rate FiO2 11/04/18 12:00 97.6 62 18 128/65 (86) 95 11/04/18 09:00 Nasal Cannula 2.0 11/04/18 08:00 97.8 60 18 132/61 (84) 95 11/04/18 04:13 66 18 92 Nasal Cannula 2.0 28 11/04/18 04:00 55 11/04/18 04:00 97.5 108 15 148/65 (92) 93 11/04/18 00:00 66 11/04/18 00:00 97.8 100 17 135/66 (89) 97 11/03/18 21:00 Nasal Cannula 2.0 11/03/18 20:00 72 11/03/18 20:00 97.3 74 16 136/58 (84) 97 11/03/18 16:56 132/64 (86) 11/03/18 16:00 97.2 75 22 162/127 (139) 96 11/03/18 16:00 58 Intake and Output 11/03/18 11/04/18 19:00 07:00 Intake Total 400 ml Output Total 400 ml 1500 ml Balance 0 ml -1500 ml IV Total 400 ml Output Urine Total 400 ml 1500 ml General Appearance: WD/WN HEENT: normocephalic, atraumatic Respiratory/Chest: chest wall non-tender, lungs clear Cardiovascular: normal peripheral pulses, normal rate Abdomen: normal bowel sounds, soft, non tender Genitourinary: normal external genitalia Extremities: no clubbing Neurologic/Psychiatric: teller vault II-XII grossly normal Lymphatic: no neck adenopathy Musculoskeletal: normal muscle bulk Microbiology Date/Time Source Procedure Growth Status 11/01/18 15:10 Blood Blood Culture - Preliminary NO GROWTH AFTER 48 HOURS Resulted 11/01/18 14:56 Blood Blood Culture - Preliminary NO GROWTH AFTER 48 HOURS Resulted 11/01/18 17:10 Nasal Nares Left MRSA Culture - Final NO METHICILLIN RESISTANT STAPH AUREUS... Complete 11/02/18 15:00 Urine,Clean Catch Urine Culture - Preliminary NO GROWTH AFTER 24 HOURS Resulted 11/01/18 15:20 Urine,Clean Catch Urine Culture - Preliminary NO GROWTH AFTER 24 HOURS Resulted 11/01/18 17:10 Rectum VRE Culture - Final NO VANCOMYCIN RESISTANT ENTEROCOCCUS ... Resulted 11/01/18 17:10 Rectum Pending Resulted Laboratory Tests 11/04/18 09:15: White Blood Count 8.4, Red Blood Count 3.32L, Hemoglobin 9.0L, Hematocrit 28.7L , Mean Corpuscular Volume 86, Mean Corpuscular Hemoglobin 27.2, Mean Corpuscular Hemoglobin Concent 31.4L, Red Cell Distribution Width 14.7, Platelet Count 400, Mean Platelet Volume 4.7L, Neutrophils (%) (Auto) 69.8, Lymphocytes (%) (Auto) 19.6L, Monocytes (%) (Auto) 7.9, Eosinophils (%) (Auto) 1.9, Basophils (%) (Auto) 0.9, Sodium Level 134L, Potassium Level 3.8, Chloride Level 97L, Carbon Dioxide Level 31, Anion Gap 6, Blood Urea Nitrogen 14, Creatinine 0.7, Estimat Glomerular Filtration Rate , Glucose Level 119H, Calcium Level 9.4 Current Medications Medications (Trade) Dose Ordered Sig/Casimiro Route PRN Reason Start Time Stop Time Status Last Admin Dose Admin Acetaminophen (Tylenol) 650 mg Q4H PRN ORAL T>100.5 11/04/18 07:15 12/01/18 19:14 Al Hydroxide/Mg Hydroxide (Mylanta II) 30 ml Q6H PRN ORAL dyspepsia 11/04/18 07:15 12/01/18 19:14 Albuterol/ Ipratropium (Albuterol/ Ipratropium) 3 ml Q4H PRN HHN Shortness of Breath 11/04/18 07:00 11/09/18 06:59 Ceftriaxone Sodium 1 gm/ Dextrose 55 ml @ 110 mls/hr DAILY IVPB 11/04/18 09:00 11/10/18 08:59 11/04/18 09:06 Dextrose (Dextrose 50%) 25 ml Q30M PRN IV Hypoglycemia 11/04/18 07:15 12/01/18 19:14 Dextrose (Dextrose 50%) 50 ml Q30M PRN IV Hypoglycemia 11/04/18 07:00 12/01/18 19:29 Folic Acid (Folate) 1 mg DAILY ORAL 11/05/18 09:00 12/05/18 08:59 Heparin Sodium (Porcine) (Heparin 5000 units/ml) 5,000 units EVERY 12 HOURS SUBQ 11/04/18 09:00 12/02/18 20:59 11/04/18 09:08 Lorazepam (Ativan 2mg/ml 1ml) 0.5 mg Q4H PRN IV For Anxiety 11/04/18 07:15 11/08/18 19:14 Mirtazapine (Remeron) 15 mg QHS ORAL 11/04/18 21:00 12/02/18 20:59 Morphine Sulfate (Morphine Sulfate) 1 mg Q4H PRN IVP pain 4-10 11/04/18 07:15 11/08/18 19:14 Ondansetron HCl (Zofran) 4 mg Q6H PRN IVP Nausea & Vomiting 11/04/18 07:15 12/01/18 19:14 Polyethylene Glycol (Miralax) 17 gm HSPRN PRN ORAL Constipation 11/04/18 21:00 12/01/18 20:59 Sodium Chloride 1,000 ml @ 50 mls/hr Q20H IV 11/04/18 07:00 12/02/18 12:14 11/04/18 09:06 Zolpidem Tartrate (Ambien) 5 mg HSPRN PRN ORAL Insomnia 11/04/18 21:00 11/08/18 20:59 Jose Reese MD Nov 04, 2018 14:34
[2018-11-04 15:16] VITALS: BP 137/60
--- NOTE | 2018-11-04 17:06 | Internal Med Progress Note ---
Subjective Physician Name Aakash Urias Attending Physician Aakash Urias MD Current Medications Medications (Trade) Dose Ordered Sig/Casimiro Route PRN Reason Start Time Stop Time Status Last Admin Dose Admin Acetaminophen (Tylenol) 650 mg Q4H PRN ORAL T>100.5 11/04/18 07:15 12/01/18 19:14 Al Hydroxide/Mg Hydroxide (Mylanta II) 30 ml Q6H PRN ORAL dyspepsia 11/04/18 07:15 12/01/18 19:14 Albuterol/ Ipratropium (Albuterol/ Ipratropium) 3 ml Q4H PRN HHN Shortness of Breath 11/04/18 07:00 11/09/18 06:59 Ceftriaxone Sodium 1 gm/ Dextrose 55 ml @ 110 mls/hr DAILY IVPB 11/04/18 09:00 11/10/18 08:59 11/04/18 09:06 Dextrose (Dextrose 50%) 25 ml Q30M PRN IV Hypoglycemia 11/04/18 07:15 12/01/18 19:14 Dextrose (Dextrose 50%) 50 ml Q30M PRN IV Hypoglycemia 11/04/18 07:00 12/01/18 19:29 Folic Acid (Folate) 1 mg DAILY ORAL 11/05/18 09:00 12/05/18 08:59 Heparin Sodium (Porcine) (Heparin 5000 units/ml) 5,000 units EVERY 12 HOURS SUBQ 11/04/18 09:00 12/02/18 20:59 11/04/18 09:08 Lorazepam (Ativan 2mg/ml 1ml) 0.5 mg Q4H PRN IV For Anxiety 11/04/18 07:15 11/08/18 19:14 Mirtazapine (Remeron) 15 mg QHS ORAL 11/04/18 21:00 12/02/18 20:59 Morphine Sulfate (Morphine Sulfate) 1 mg Q4H PRN IVP pain 4-10 11/04/18 07:15 11/08/18 19:14 Ondansetron HCl (Zofran) 4 mg Q6H PRN IVP Nausea & Vomiting 11/04/18 07:15 12/01/18 19:14 Polyethylene Glycol (Miralax) 17 gm HSPRN PRN ORAL Constipation 11/04/18 21:00 12/01/18 20:59 Sodium Chloride 1,000 ml @ 50 mls/hr Q20H IV 11/04/18 07:00 12/02/18 12:14 11/04/18 09:06 Zolpidem Tartrate (Ambien) 5 mg HSPRN PRN ORAL Insomnia 11/04/18 21:00 11/08/18 20:59 Allergies: Coded Allergies: No Known Allergies (Unverified , 11/01/18) Subjective awake, alert, responsive, NAD, Cachetic Objective Last Vital Signs Date Time Temp Pulse Resp B/P (MAP) Pulse Ox O2 Delivery O2 Flow Rate FiO2 11/04/18 15:16 97.2 56 18 137/60 (85) 95 11/04/18 09:00 Nasal Cannula 2.0 11/04/18 04:13 28 Laboratory Tests Test 11/04/18 09:15 White Blood Count 8.4 K/UL (4.8-10.8) Red Blood Count 3.32 M/UL (4.70-6.10) L Hemoglobin 9.0 G/DL (14.2-18.0) L Hematocrit 28.7 % (42.0-52.0) L Mean Corpuscular Volume 86 FL (80-99) Mean Corpuscular Hemoglobin 27.2 PG (27.0-31.0) Mean Corpuscular Hemoglobin Concent 31.4 G/DL (32.0-36.0) L Red Cell Distribution Width 14.7 % (11.6-14.8) Platelet Count 400 K/UL (150-450) Mean Platelet Volume 4.7 FL (6.5-10.1) L Neutrophils (%) (Auto) 69.8 % (45.0-75.0) Lymphocytes (%) (Auto) 19.6 % (20.0-45.0) L Monocytes (%) (Auto) 7.9 % (1.0-10.0) Eosinophils (%) (Auto) 1.9 % (0.0-3.0) Basophils (%) (Auto) 0.9 % (0.0-2.0) Sodium Level 134 MMOL/L (136-145) L Potassium Level 3.8 MMOL/L (3.5-5.1) Chloride Level 97 MMOL/L (98-107) L Carbon Dioxide Level 31 MMOL/L (21-32) Anion Gap 6 mmol/L (5-15) Blood Urea Nitrogen 14 mg/dL (7-18) Creatinine 0.7 MG/DL (0.55-1.30) Estimat Glomerular Filtration Rate mL/min (>60) Glucose Level 119 MG/DL (74-106) H Calcium Level 9.4 MG/DL (8.5-10.1) Microbiology Date/Time Source Procedure Growth Status 11/01/18 17:10 Nasal Nares Left MRSA Culture - Final NO METHICILLIN RESISTANT STAPH AUREUS... Complete 11/02/18 15:00 Urine,Clean Catch Urine Culture - Preliminary NO GROWTH AFTER 24 HOURS Resulted 11/01/18 17:10 Rectum VRE Culture - Final NO VANCOMYCIN RESISTANT ENTEROCOCCUS ... Resulted 11/01/18 17:10 Rectum Pending Resulted Intake and Output 11/03/18 11/04/18 19:00 07:00 Intake Total 400 ml Output Total 400 ml 1500 ml Balance 0 ml -1500 ml IV Total 400 ml Output Urine Total 400 ml 1500 ml Objective General: No acute distress, awake and alert HEENT: NCAT, sclera anicteric, PERRL, EOMI. Neck: Supple, no significant jugular venous distention, Lungs: Fair inspiratory effort, clear to auscultation bilaterally, no Wheeze or Rales. Heart: Regular rate and rhythm, normal S1/S2, no murmurs/gallops Abdomen: soft, nontender, nondistended. Normoactive bowel sounds. : Guido cath Extremities: No Cyanosis , clubbing or edema.muscle atrophy. Neuro: A&O x 3, Able to move all extremities slowly Skin: warm, no rashes Assessment/Plan Assessment/Plan . Urinary tract infection. 2. Hyponatremia. 3. Generalized weakness. 4. Chronic obstructive pulmonary disease. 5. Hypertension. 6. Congestive heart failure. 7. Gastroesophageal reflux disease. 8. Anorexia. TREATMENT: 1. Urinary tract infection. The patient has been started empirically on ceftriaxone. A urine culture and sensitivity are pending. Await ID and sensitivity of urine culture. 2. Hyponatremia. This may be secondary to decreased oral intake. The patient has been started empirically on normal saline intravenously. 3. Generalized weakness. 4. Anorexia. A speech therapy consultation has been obtained. A Gastroenterology consultation has been obtained. We will follow recommendations of GI and speech therapy. 5. Chronic obstructive pulmonary disease. A chest x-ray is pending. The patient may have bronchitis in light of recent nonproductive cough. The patient has been started empirically on ceftriaxone as above. A Pulmonary consultation has been obtained with Dr. Jose Reese. 6. Congestive heart failure. 7. Gastroesophageal reflux disease. Continue Pepcid as above. Aakash Urias MD Nov 04, 2018 17:06
[2018-11-04] MEDS ORDERED: Miralax 17gm pkt ORAL PRN (21:00)
[2018-11-04] MEDS ORDERED: Zolpidem 5mg tab ORAL PRN (21:00)
--- NOTE | 2018-11-04 23:59 | General Progress Note ---
Assessment/Plan Status: stable, progressing Assessment/Plan failure to thrive cognitive impairment mdd Remeron 15mg po qhs provided ro/st Subjective Neurologic/Psychiatric: Reports: anxiety, depressed, emotional problems Allergies: Coded Allergies: No Known Allergies (Unverified , 11/01/18) Objective Last 24 Hour Vital Signs Date Time Temp Pulse Resp B/P (MAP) Pulse Ox O2 Delivery O2 Flow Rate FiO2 11/04/18 15:16 97.2 56 18 137/60 (85) 95 11/04/18 12:00 97.6 62 18 128/65 (86) 95 11/04/18 09:00 Nasal Cannula 2.0 11/04/18 08:00 97.8 60 18 132/61 (84) 95 11/04/18 04:13 66 18 92 Nasal Cannula 2.0 28 11/04/18 04:00 55 11/04/18 04:00 97.5 108 15 148/65 (92) 93 11/04/18 00:00 66 11/04/18 00:00 97.8 100 17 135/66 (89) 97 Intake and Output 11/03/18 11/04/18 19:00 07:00 Intake Total 400 ml Output Total 400 ml 1500 ml Balance 0 ml -1500 ml IV Total 400 ml Output Urine Total 400 ml 1500 ml Laboratory Tests 11/04/18 09:15: White Blood Count 8.4, Red Blood Count 3.32L, Hemoglobin 9.0L, Hematocrit 28.7L , Mean Corpuscular Volume 86, Mean Corpuscular Hemoglobin 27.2, Mean Corpuscular Hemoglobin Concent 31.4L, Red Cell Distribution Width 14.7, Platelet Count 400, Mean Platelet Volume 4.7L, Neutrophils (%) (Auto) 69.8, Lymphocytes (%) (Auto) 19.6L, Monocytes (%) (Auto) 7.9, Eosinophils (%) (Auto) 1.9, Basophils (%) (Auto) 0.9, Sodium Level 134L, Potassium Level 3.8, Chloride Level 97L, Carbon Dioxide Level 31, Anion Gap 6, Blood Urea Nitrogen 14, Creatinine 0.7, Estimat Glomerular Filtration Rate , Glucose Level 119H, Calcium Level 9.4 Height (Feet): 5 Height (Inches): 11.00 Weight (Pounds): 124 General Appearance: no apparent distress, alert Neurologic: responsive, depressed affect Cali Gonzales MD Nov 04, 2018 23:59
--- NOTE | 2018-11-05 16:30 | Discharge Summary ---
Discharge Summary Discharge Summary _ DATE OF ADMISSION: 11/01/2018 DATE OF DISCHARGE: 11/04/2018 DISCHARGED BY: Dr. Urias REASON FOR ADMISSION: 83 years old male with past medical history of congestive heart failure, COPD, hypertension, anemia, DNR/DNI status, was sent from the [facility] for evaluation due to increased generalized weakness. Facility reported decreased oral intake. No nausea , no vomiting. Patient also reported to have continued cough. Upon evaluation vital signs were stable. Patient required 3 L of oxygen via nasal cannula with pulse oximetry reaching 98 %. Laboratory workup revealed no leukocytosis, hemoglobin 8.9, hematocrit 27.8. Sodium 130, stable electrolytes and renal parameters otherwise. Troponin negative, stable LFT, albumin 2.2. Urinalysis revealed evidence of pyuria and moderate bacteria. In ED patient started on empiric antibiotic for UTI and was admitted to Med Surg floor for further management CONSULTANTS: pulmonary Dr. Reese GI specialist Dr. Jean psychiatrist HOSPITAL COURSE: Patient admitted and started on broad-spectrum antibiotic. Urine culture were negative, blood culture were negative. Patient completed 3 days treatment for possible UTI. Antibiotic subsequently stopped. Bedside swallow evaluation revealed mild oropharyngeal dysphagia. Patient had risk for aspiration. Speech therapist recommended continue oral diet for quality of life with strict aspiration/reflux precaution and one-to-one feeding. Order Processing Clerk followed. Chest x-ray was consistent with evidence of COPD. Supplemental oxygen provided as needed to keep oximetry above 92%. Pulmonary toilet provided as needed. Antitussive provided as needed. GI specialist closely followed. Hemoglobin and hematocrit were closely monitored with goal to keep hemoglobin above 7. Stool for occult blood was negative. Anemia workup revealed anemia of chronic disease and folate deficiency. Patient started on folate replacement. Prior to discharge hemoglobin 9.0 hematocrit 28.7. Strict aspiration precautions were maintained with one-to-one feeding. Calorie count was initiated and to be continued at the detention facility. Bowel regimen instituted. Patient started on PPI. GI specialist defer placement of gastrostomy tube at this time and recommended continue calorie count and supportive care with strict aspiration precautions and one-to-one feeding at the facility. CEA within normal range. Stool for occult blood was negative. Sodium 134 prior to discharge Psychiatrist followed. Patient started on Remeron at nighttime. Reality orientation and supportive therapy provided. Patient clinically stabilized and was ready for transfer back to [facility] for continuation of care. FINAL DIAGNOSES: Failure to thrive due to severe protein calorie malnutrition Possible UTI Hyponatremia- improved COPD Hypertension Congestive heart failure GERD Severe anemia of chronic disease Folate deficiency anemia Hypothyroidism Cognitive impairment Major depressive disorder DISCHARGE MEDICATIONS: See Medication Reconciliation list. DISCHARGE INSTRUCTIONS: Patient was discharged to the detention facility. Follow up with medical doctor at the facility. I have been assigned to dictate discharge summary for this account. I was not involved in the patient's management. Randi Richards NP Nov 05, 2018 16:30
== END 2018-11-04 20:00 | DRG 641 ==
LOC: EDBD 14:28 → EMR 17:56 → 2E 18:17 → EDBEDREQ 18:58 → 4E 11-04 06:57
DX: E43 Unspecified severe protein-calorie malnutrition (principal); N39.0 Urinary tract infection, site not specified; E87.1 Hypo-osmolality and hyponatremia; Z68.1 Body mass index [BMI] 19.9 or less, adult; J44.9 Chronic obstructive pulmonary disease, unspecified; D63.8 Anemia in other chronic diseases classified elsewhere; R62.7 Adult failure to thrive; F32.9 Major depressive disorder, single episode, unspecified; R53.1 Weakness; I71.4 Abdominal aortic aneurysm, without rupture; K21.9 Gastro-esophageal reflux disease without esophagitis; E03.9 Hypothyroidism, unspecified; I10 Essential (primary) hypertension; Z66 Do not resuscitate; I50.9 Heart failure, unspecified; D52.9 Folate deficiency anemia, unspecified
CPT/HCPCS: 36415; 71045; 80048; 80053; 80061; 81001; 82270; 82378; 82533; 82607; 82746; 83540; 83550; 83615; 83690; 83930; 83935; 84300; 84439; 84443; 84481; 84484; 84550; 85007; 85025; 85044; 85060; 85610; 85651; 85730; 86850; 86900; 86901; 87040; 87081; 87086; 93005; 96365; 99285; J7620